=== PATIENT | male | born 1960 | race Caucasian/White ===

== ENCOUNTER → 2021-11-20 | Outpatient (CLI) | payer BC ==
--- NOTE | 2021-11-23 12:03 | PE ---
Nuclear medicine PET/CT HISTORY: Solitary pulmonary nodule, initial, R 91.8 Patient received 11 mCi of F-18 FDG intravenously and delayed scanning was performed from the skull b ase to the mid thighs. A localization and attenuation correction CT scan was also performed. Comparison unavailable Avid mediastinal uptake SUV 2.3, average liver uptake SUV 2.9 Chest and neck: There is no supraclavicular, cervical, mediastinal, axillary or hilar adenopathy. No suspicious uptake. No evident lung mass. Bilateral groundglass nodules are present in the upper lobes , there is a soft tissue nodule in the left upper lobe axial image #94 measuring 14 mm. No suspicious uptake. Bandlike areas of increased attenuation present in the lung bases. Ascending aorta is 4.1 cm . There is no pleural or pericardial effusion. No endobronchial lesion. ABDOMEN: No evident adrenal mass. No retroperitoneal adenopathy or suspicious uptake. Liver shows no mass. There is an umbilical hernia containing fat. There is no suspicious uptake. Osseous structures show no suspicious uptake. IMPRESSION: No suspicious uptake is evident. Follow-up is recommended
== END | disposition home or self-care (01) ==
LOC: RADXRMAIN 07:59
PROVIDERS: ATTEND Pediatrics
DX: R91.8 Other nonspecific abnormal finding of lung field (principal)
CPT/HCPCS: 78815; A9552

== ENCOUNTER → 2022-12-17 | Outpatient (CLI) | payer BC ==
--- NOTE | 2022-12-18 18:01 | PE ---
EXAMINATION TYPE: PET CT fusion skull to thigh DATE OF EXAM: 12/17/2022 COMPARISON: None Prior PET/CT: 11/20/2021 HISTORY: Solitary pulmonary nodule TECHNIQUE: Following the intravenous administration of 13.5 mCi of F-18 FDG, whole body images are p erformed from the skull base to the midthigh. Images are reviewed on the computer in the coronal, ax ial, and sagittal planes. Reconstructed rotating images are created on independent workstation and r eviewed on the computer. A localization and attenuation correction CT is performed in conjunction w ith the PET scan. DLP: 435.21 mGycm SCAN: Subsequent Blood glucose: 88 mg/dL Average Mediastinum SUV: 1.32 Average Liver SUV: 1.85 FINDINGS: NECK: No abnormal uptake THORAX: There is a pulmonary nodule in the lateral left upper lung field. This has an SUV value 0.38 and is likely benign. Image 79. There is a posterior density right apex, image 72 with an SUV of 1.08. There is some vague uptake in the posterior left lung at the same level. This is a groundglass opacity with an SUV of 0.93. ABDOMEN: No abnormal uptake PELVIS: No abnormal uptake OSSEOUS STRUCTURES: No abnormal uptake LOCALIZATION CT: Groundglass opacities posterior upper lung santana bilaterally. Small nodule lateral right upper lung field COMPARISON: Posterior lung groundglass opacities may be slightly increasing in SUV, previously the ra nge of 0.76 on the right and 0.41 on the left. IMPRESSION: 1. Vague increased uptake remains within the normal range of groundglass opacities. Consider developi ng neoplasm. 2. Nodular density in the periphery of the right upper lung field has low SUV value may be benign.
== END | disposition home or self-care (01) ==
LOC: RADPETMAIN 12:57
PROVIDERS: ATTEND Internal Medicine
DX: R91.8 Other nonspecific abnormal finding of lung field (principal); J98.4 Other disorders of lung
CPT/HCPCS: 78815; A9552

== ENCOUNTER 2023-05-25 09:35 | Emergency (ER) | payer BC ==
[2023-05-25 10:22] LABS: Basophils # (A) 0.1 k/uL (0-0.2); Basophils % (A) 0 %; Eosinophils # (A) 0.3 k/uL (0-0.7); Eosinophils % (A) 3 %; HCT 38.9 % (39.0-53.0); HGB 12.9 gm/dL (13.0-17.5); Lymphocytes # (A) 1.3 k/uL (1.0-4.8); Lymphocytes % (A) 12 %; MCHC 33.1 g/dL (31.0-37.0); MCV 93.6 fL (80.0-100.0); Mean Platelet Volume 8.4; Monocytes # (A) 0.6 k/uL (0-1.0); Monocytes % (A) 6 %; Neutrophils # (A) 8.3 k/uL (1.3-7.7); Neutrophils % (A) 77 %; Platelet Count 276 k/uL (150-450); RBC 4.15 m/uL (4.30-5.90); WBC 10.8 k/uL (3.8-10.6)
--- NOTE | 2023-05-25 10:39 | ED ---
GI Bleed HPI - General Source: patient, RN notes reviewed Mode of arrival: ambulatory Limitations: no limitations <Barbara Boswell - Last Filed: 05/25/23 10:38> <Jovany Anaya - Last Filed: 05/25/23 14:13> - General Chief complaint: GI Bleed Stated complaint: blood in stool Time Seen by Provider: 05/25/23 10:38 - History of Present Illness Initial comments: Patient is a 62-year-old male presented to ER with chief complaint of hematochezia. Patient was sent here by Dr. Maciel's office for evaluation. Patient states he had bright red blood in his stool on Tuesday. He also endorses dark tarry stools Tuesday night and Tuesday. Patient stopped taking his Eliquis on Tuesday. Denies any fevers, chills, lightheadedness, dizziness, chest pain, shortness of breath (Barbara Boswell) Dictation was produced using [employer] dictation software. please excuse any grammatical, word or spelling errors. Chief Complaint: 62-year-old male presents to the emergency department with GI bleed History of Present Illness: Patient 62-year-old male 6 days ago he had colonoscopy performed by Dr. Maciel. States that several polyps were removed. 2 to 3 days after the procedure he started to notice bright red blood per rectum. States that the bleeding had improved. He called the GI doctor and he was told to come to the ER for evaluation. Patient has no complaints. No pain. No nausea or vomiting. Denies any dizziness or feeling faint. The ROS documented in this emergency department record has been reviewed and confirmed by me. Those systems with pertinent positive or negative responses have been documented in the HPI. All other systems are other negative and/or noncontributory. (Jovany Anaya) Review of Systems ROS Other: All systems not noted in ROS Statement are negative. <Barbara Boswell - Last Filed: 05/25/23 10:38> ROS Other: All systems not noted in ROS Statement are negative. <Jovany Anaya - Last Filed: 05/25/23 14:13> ROS Statement: Those systems with pertinent positive or pertinent negative responses have been documented in the HPI. General Exam Limitations: no limitations <Barbara Boswell - Last Filed: 05/25/23 10:38> <Jovany Anaya - Last Filed: 05/25/23 14:13> - General Exam Comments Initial Comments: Visual Physical Exam Vital signs reviewed General: Well-appearing, nontoxic, no acute distress. Head: Normocephalic, atraumatic Eyes: PERRLA, EOMI ENT: Airway patent Chest: Nonlabored breathing Skin: No visual rash, normal skin tone Neuro: Alert and oriented 3 Musculoskeletal: No gross abnormalities (Barbara Boswell) General: Well-appearing, nontoxic, no acute distress. Head: Normocephalic, atraumatic Eyes: PERRLA, EOMI ENT: Airway patent Chest: Nonlabored breathing Skin: No visual rash, normal skin tone Neuro: Alert and oriented 3 Musculoskeletal: No gross abnormalities (Jovany Anaya) Course Vital Signs 05/25/23 09:46 Temperature 97.9 F Pulse Rate 88 Respiratory 16 Rate Blood Pressure 162/91 O2 Sat by Pulse 99 Oximetry Medical Decision Making - Lab Data Result diagrams: 05/25/23 09:55 <Barbara Boswell - Last Filed: 05/25/23 10:38> - Lab Data Result diagrams: 05/25/23 09:55 05/25/23 09:55 <Jovany Anaya - Last Filed: 05/25/23 14:13> - Medical Decision Making I performed the quick note portion of the exam. Electronically signed by Barbara Boswell PA-C (Barbara Boswell) Was pt. sent in by a medical professional or institution (MICAELA Carranza, REMOTE ADVISOR, urgent care, hospital, or [facility]...) When possible be specific @ -No Did you speak to anyone other than the patient for history (EMS, parent, family, police, friend...)? What history was obtained from this source @ -No Did you review nursing and triage notes (agree or disagree)? Why? @ -I reviewed and agree with nursing and triage notes Were old charts reviewed (outside hosp., previous admission, EMS record, old EKG, old radiological studies, urgent care reports/EKG's, [facility] records)? Report findings @ -No old charts were reviewed Differential Diagnosis (chest pain, altered mental status, abdominal pain women, abdominal pain men, vaginal bleeding, musculoskeletal, weakness, fever, dyspnea, syncope, headache, dizziness, GI bleed, back pain, seizure, CVA, palpatations, mental health)? @ -Differential GI Bleed: Esophageal varices, aortoenteric fistula, Anastasiya-Benedict, gastritis, peptic ulcer disease, diverticulosis, inflammatory bowel disease, hemorrhoids, fissure, colitis, malignancy, Meckels diverticulum, this is not meant to be an all- inclusive list. EKG interpreted by me (3pts min.). @ -None done X-rays interpreted by me (1pt min.). @ -None done CT interpreted by me (1pt min.). @ -None done U/S interpreted by me (1pt. min.). @ -None done What testing was considered but not performed or refused? (CT, X-rays, U/S, labs)? Why? @ -None What meds were considered but not given or refused? Why? @ -None Did you discuss the management of the patient with other professionals (professionals i.e. , PA, REMOTE ADVISOR, lab, RT, psych nurse, hospice social worker, server support technician, teacher, chief credit officer, field nurse case manager)? Give summary @ -Case discussed including recent bowel habits, vitals, physical exam and blood work with GI, Dr. Galvan who performed the procedure. She states that if he seems well and is agreeable for discharge that can be discharged follow-up in the office outpatient. Was smoking cessation discussed for >3mins.? @ -No Was critical care preformed (if so, how long)? @ -No Were there social determinants of health that impacted care today? How? (Homelessness, low income, unemployed, alcoholism, drug addiction, transportation, low edu. Level, literacy, decrease access to med. care, shelter, rehab)? @ -No Was there de-escalation of care discussed even if they declined (Discuss DNR or withdrawal of care, Hospice)? DNR status @ -No What co-morbidities impacted this encounter? (DM, HTN, Smoking, COPD, CAD, Cancer, CVA, ARF, Chemo, Hep., AIDS, mental health diagnosis, sleep apnea, morbid obesity)? @ -None Was patient admitted / discharged? Hospital course, mention meds given and route, prescriptions, significant lab abnormalities, going to OR and other pertinent info. @ -62-year-old well-appearing male presents to the emergency department with GI bleed after colonoscopy with polypectomy procedure. Vital signs stable. Patient well-appearing at the bedside. Patient has no complaints. Laboratory evaluation is unremarkable. Case discussed with GI specialist who performed the procedure was agreeable for patient to be discharged to follow-up in the clinic outpatient. Patient and strict return precautions. He is agreeable with disposition plan. Undiagnosed new problem with uncertain prognosis? @ -No Drug Therapy requiring intensive monitoring for toxicity (Heparin, Nitro, Insulin, Cardizem)? @ -No Were any procedures done? @ -No Diagnosis/symptom? Acute, or Chronic, or Acute on Chronic? Uncomplicated (without systemic symptoms) or Complicated (systemic symptoms)? @ -GI bleed status post colonoscopy and polypectomy Side effects of treatment? @ -No Exacerbation, Progression, or Severe Exacerbation? @ -No Poses a threat to life or bodily function? How? (Chest pain, USA, IA, pneumonia, PE, COPD, DKA, ARF, appy, cholecystitis, CVA, Diverticulitis, Homicidal, Suicidal, threat to staff... and all critical care pts) @ -No (Jovany Anaya) - Lab Data Lab Results 05/25/23 05/25/23 05/25/23 Range/Units 09:55 09:55 09:55 WBC 10.8 H (3.8-10.6) k/uL RBC 4.15 L (4.30-5.90) m/uL Hgb 12.9 L (13.0-17.5) gm/dL Hct 38.9 L (39.0-53.0) % MCV 93.6 (80.0-100.0) fL MCH 31.0 (25.0-35.0) pg MCHC 33.1 (31.0-37.0) g/dL RDW 14.0 (11.5-15.5) % Plt Count 276 (150-450) k/uL MPV 8.4 Neutrophils % 77 % Lymphocytes % 12 % Monocytes % 6 % Eosinophils % 3 % Basophils % 0 % Neutrophils # 8.3 H (1.3-7.7) k/uL Lymphocytes # 1.3 (1.0-4.8) k/uL Monocytes # 0.6 (0-1.0) k/uL Eosinophils # 0.3 (0-0.7) k/uL Basophils # 0.1 (0-0.2) k/uL Sodium 140 (137-145) mmol/L Potassium 4.6 (3.5-5.1) mmol/L Chloride 107 (98-107) mmol/L Carbon Dioxide 24 (22-30) mmol/L Anion Gap 9 mmol/L BUN 21 H (9-20) mg/dL Creatinine 1.24 (0.66-1.25) mg/dL Est GFR (CKD-EPI)AfAm 72 (>60 ml/min/1.73 sqM) Est GFR (CKD-EPI)NonAf 62 (>60 ml/min/1.73 sqM) Glucose 103 H (74-99) mg/dL Calcium 9.5 (8.4-10.2) mg/dL Total Bilirubin 0.8 (0.2-1.3) mg/dL AST 28 (17-59) U/L ALT 21 (4-49) U/L Alkaline Phosphatase 179 H (38-126) U/L Troponin I <0.012 (0.000-0.034) ng/mL Total Protein 7.9 (6.3-8.2) g/dL Albumin 4.3 (3.5-5.0) g/dL Disposition <Barbara Boswell - Last Filed: 05/25/23 10:38> Is patient prescribed a controlled substance at d/c from ED?: No Time of Disposition: 14:12 <Jovany Anaya - Last Filed: 05/25/23 14:13> Clinical Impression: GI bleed Disposition: HOME SELF-CARE Condition: Fair Instructions (If sedation given, give patient instructions): Gastrointestinal Bleeding (ED) Referrals: Gisel Galvan MD [STAFF PHYSICIAN] - 1-2 days
[2023-05-25 10:43] LABS: ALT 21 U/L (4-49); AST 28 U/L (17-59); African American GFR (CKD) 72 (>60 ml/min/1.73 sqM); Albumin 4.3 g/dL (3.5-5.0); Alkaline Phosphatase 179 U/L (38-126); Anion Gap 9 mmol/L; Blood Urea Nitrogen 21 mg/dL (9-20); Calcium 9.5 mg/dL (8.4-10.2); Carbon Dioxide 24 mmol/L (22-30); Chloride 107 mmol/L (98-107); Glucose 103 mg/dL (74-99); Non-African American GFR(CKD) 62 (>60 ml/min/1.73 sqM); Potassium 4.6 mmol/L (3.5-5.1); Sodium 140 mmol/L (137-145); Total Bilirubin 0.8 mg/dL (0.2-1.3); Total Protein 7.9 g/dL (6.3-8.2)
[2023-05-25 14:50] VITALS: BP 170/82; PULSE 97; RESP 18; TEMP 98.1
== END 2023-05-25 14:41 | disposition home or self-care (01) ==
LOC: EC 09:35
DX: K92.1 Melena (principal)
CPT/HCPCS: 36415; 80053; 84484; 85025; 85730; 93005; 99284

== ENCOUNTER → 2024-01-26 | Outpatient (CLI) | payer BC ==
--- NOTE | 2024-01-29 21:41 | PE ---
EXAMINATION TYPE: PET CT fusion skull to thigh DATE OF EXAM: 01/26/2024 COMPARISON: No recent pertinent CT Prior PET/CT: 12/17/2022 HISTORY: Solitary pulmonary nodule TECHNIQUE: Following the intravenous administration of 11.64 mCi of F-18 FDG, whole body images are performed from the skull base to the midthigh. Images are reviewed on the computer in the coronal, a xial, and sagittal planes. Reconstructed rotating images are created on independent workstation and reviewed on the computer. A localization and attenuation correction CT is performed in conjunction with the PET scan. DLP: 491.45 mGycm SCAN: initial Blood glucose: 100 mg/dL Average Mediastinum SUV: 2.36 Average Liver SUV: 2.9 FINDINGS: NECK: No abnormal uptake THORAX: There is focal uptake within a solitary pulmonary nodule posterior right upper lung field, im age 71, SUV 5.23 findings can be compatible with neoplasm. Previous SUV 1.08. The groundglass opacity within the left upper lung field is again evident, image 71 has intermediate uptake. This is increased from the comparison. Neoplasm is not excluded ABDOMEN: No abnormal uptake PELVIS: No abnormal uptake OSSEOUS STRUCTURES: No abnormal uptake LOCALIZATION CT: PeriUmbilical hernia is noted. COMPARISON: Finding is an interval change from comparison. IMPRESSION: 1. Abnormal uptake within the posterior right lung nodule. Findings suspicious for neoplasm. 2. Intermediate uptake within the groundglass opacity posterior left upper lung field. [facility], Workstation: [facility], 01/29/2024 9:39 PM
== END | disposition home or self-care (01) ==
LOC: RADPETMAIN 13:58
PROVIDERS: ATTEND Internal Medicine
DX: R91.8 Other nonspecific abnormal finding of lung field (principal)
CPT/HCPCS: 78815; A9552

== ENCOUNTER 2024-03-29 09:16 | Day surgery (SDC) | payer BC ==
[2024-03-26 11:06] VITALS: BMI 25.6
[~2024-03-29 09:16] MED LIST: LACTATED RINGERS 1,000 ML IV SCH
--- NOTE | 2024-03-29 10:39 | CT ---
EXAMINATION TYPE: CT chest wo con DATE OF EXAM: 03/29/2024 COMPARISON: PET/CT 01/26/2024 HISTORY: 63-year-old male shortness of breath, Ion bronchoscopy TECHNIQUE: Contiguous axial scanning of the without IV contrast. Images reconstructed for procedure p sharmila. Coronal/sagittal reconstructions performed. CT DLP: 353.50mGycm. Automatic exposure control utilized for a dose reduction. FINDINGS: The heart is mildly enlarged without pericardial effusion. Biatrial dilatation noted. Ascending aorta aneurysmal at 4.1 cm. Conventional vessel branching anatomy. Ectatic upper descending thoracic aorta 3.1 cm. Paratracheal lymph nodes have increased in size currently 1.4 cm lower right paratracheal versus 1.2 cm, previously. 1.0 cm right paratracheal. 1.2 cm right hilar. Borderline caliber main right and left pulmonary arteries up to 2.5 cm may reflect underlying pulmona ry hypertension. Prominent bands of scarring at the lower lungs. Mild emphysematous change. Lobulated solid nodule posterior right upper lobe measuring 1.9 cm versus 1.5 cm, previously. A small 5 mm satellite nodule is better seen now. Posterior lingular nodule measuring 1.3 cm versus 1.0 cm on 01/26/2024 Scattered groundglass foci are present in the upper and midlungs, largest posterior left upper lobe m easuring 2.0 cm, unchanged. These areas can continue to be followed Visualized upper abdomen shows no gross abnormality. Bones: No osseous destructive process. IMPRESSION: 1. Posterior right upper lobe nodule currently 1.9 cm versus 1.5 cm, previously. A 5 mm solid nodule is now better seen. 2. Right hilar and right paratracheal nodes slightly larger now measuring up to 1.4 cm versus 1.2 cm, previously. 3. Posterior lingular nodule currently 1.3 cm versus 1.0 cm, previously. Ongoing careful surveillance follow-up recommended to exclude metachronous neoplasm. 4. Additional stable scattered groundglass foci that represent areas of adenomatous hyperplasia can a lso be followed on an annual basis. 5. Bands of scarring in the lower lungs. Mild cardiomegaly with pulmonary arterial hypertension. [facility], Workstation: 3, 03/29/2024 10:36 AM
[2024-03-29] MEDS: IV FLUID CONTINUATION 1,000 ML IV ONE (12:36)
[2024-03-29] MEDS: LACTATED RINGERS 1,000 ML IV SCH (12:36)
[2024-03-29] MEDS ORDERED: fentaNYL (PF) 50 MCG/ML 2 ML AMP ONE (15:05)
[2024-03-29] MEDS ORDERED: ROCURONIUM 10 MG/ML (5 ML VIAL) IV ONE (15:05)
[2024-03-29] MEDS ORDERED: PROPOFOL 10 MG/ML 20 ML VIAL IV ONE (15:05)
[2024-03-29] MEDS ORDERED: SUCCINYLCHOLINE CHLORIDE 200 MG/10 ML VIAL IV ONE (15:05)
[2024-03-29] MEDS ORDERED: LIDOCAINE 1% INJ 10MG/ML (20 ML MDV) ONE (15:05)
[2024-03-29] MEDS ORDERED: GLYCOPYRROLATE 0.2 MG/ML 2 ML VIAL ONE (15:05)
[2024-03-29] MEDS ORDERED: NEOSTIGMINE 1 MG/ML 10 ML VIAL ONE (15:05)
[2024-03-29] MEDS ORDERED: MIDAZOLAM 2 MG/2 ML VIAL ONE (15:05)
[2024-03-29] MEDS ORDERED: PHENYLEPHRINE-0.9% NACL SYG 1,000 MCG/10 ML SYRINGE ONE (15:05)
[2024-03-29] MEDS: LACTATED RINGERS 1,000 ML IV ONE (16:53)
--- NOTE | 2024-03-29 16:57 | P.PCN ---
Date of Procedure: 03/29/24 Operative Findings: Preoperative Diagnosis: Right upper lobe mass Left upper lobe mass/groundglass opacity Mediastinal lymphadenopathy Postoperative Diagnosis: Right upper lobe mass Left upper lobe mass/groundglass opacity Mediastinal lymphadenopathy Procedure(s) Performed: Flexible bronchoscopy Robotic-assisted bronchoscopy and addition to radial ultrasound evaluation of the right upper lobe mass Robotic-assisted transbronchial transbronchial needle aspirate, transbronchial biopsies, transbronchial brushing and bronchoalveolar lavage of the right upper lobe mass Robotic assisted transbronchial biopsies, transbronchial brushing and a bronchioloalveolar lavage of the left upper lobe mass/groundglass opacity Endobronchial ultrasound Transbronchial needle aspirate of station 4R and 10R lymph nodes Anesthesia: HOLLISA Surgeon: Darius Roberts Estimated Blood Loss (ml): 0 Pathology: other Condition: stable Disposition: same day Operative Findings: A physical exam was performed. Informed consent was obtained from the patient after explaining all the risks (pneumothorax, life threatening bleeding, infection and adverse effects due to medications), benefits and alternatives to the procedure which the patient appeared to understand and so stated. The patient was connected to the monitoring devices. General anesthesia was induced and the patient was intubated by anesthesia. A final timeout was performed and the procedure confirmed by the attending staff bronchoscopist. The bronchoscope was inserted and the airway examined. Airway examination shows that the distal trachea, Right upper lobe and middle lobe and lower lobe bronchi was all within normal limits. Patient left mainstem bronchus is within normal limits. Examination of left lower lobe was within normal limits. The left upper lobe bronchus and the lingular segment was also patent within normal limits. The flexible bronchoscope was removed and the robotic bronchoscope was inserted. Registration was completed. I next guided the robotic bronchoscope using the navigation system into the right upper lobe mass and the navigation was done through the posterior segment of the right upper lobe. Once in proper position, the bronchoscope was frozen. The radial EBUS probe was placed through the bronchoscope and confirmed abnormal u/s images vs normal lung. A needle was placed through the working channel and another fluoroscopic guidance, we sampled the area in the right upper lobe where the opacity was present. We then used a cloud biopsy pattern with ultrasound confirmation for 2 additional passes with the needle. Following that, a forceps were next introduced through working channel and extended the appropriate distance and 2 transbronchial biopsies were performed using fluoroscopic guidance. The u/s probe was then reinserted to confirm location. When confirmed this process was repeated for a total of 8 transbronchial biopsies. Following that, under fluoroscopic guidance, transbronchial brushing of the right upper lobe mass was done. Following that, a total of 40 cc of saline was infused into the right upper lobe and approximately 10 cc of saline was aspirated and the bronchioloalveolar lavage was sent for cytologic evaluation. Following that, the robotic bronchoscope was directed to the apical posterior segment of the left upper lobe. Once in proper position, the bronchoscope was frozen. The radial EBUS probe was placed through the bronchoscope and confirmed abnormal u/s images vs normal lung. A needle was placed through the working channel and another fluoroscopic guidance, we sampled the area in left upper lob e where the opacity was present. A forceps were next introduced through working channel and extended the appropriate distance and 2 transbronchial biopsies were performed using fluoroscopic guidance. The u/s probe was then reinserted to confirm location. When confirmed this process was repeated for a total of 8 transbronchial biopsies. Following that, under fluoroscopic guidance, transbronchial brushing of the left upper lobe opacity/groundglass lesion was done. Following that, a total of 40 cc of saline was infused into the right upper lobe and approximately 10 cc of saline was aspirated and the bronchioloalveolar lavage was sent for cytologic evaluation. Following that, I am bronchoscope was removed. The endobronchial ultrasound was inserted and a full evaluation of the mediastinal lymph nodes was done. Upon careful investigation with endobronchial ultrasound, a 15 x 10 mm right paratracheal lymph (4R) node was identified and another 10 mm station 10R lymph node.. Using a 22-gauge position needle, transbronchial needle aspirate of the station 4R was performed with a total of 3 passes and station 10R lymph node was done with a total of 3 passes. Endobronchial ultrasound was removed. The rest of the midsternal stations showed no significant pathologic mediastinal lymphadenopathy. Flex. bronchoscope was inserted and regular suctioning was done. At the completion of the procedure, no residual secretions or bloody material within the airway. The bronchoscope was removed. The patient was extubated. FINDINGS: 1. The airways appeared normal 2 Successful navigation, ultrasonographic identification, and biopsies of right upper lobe mass and left upper lobe mass 3. The the radial ultrasound view was concentric in the right upper lobe, less concentric and more hazy in the left upper lobe. 4. Endobronchial ultrasound with biopsy of the right paratracheal station 4R and 10R lymph nodes with the primary care RECOMMENDATIONS: Await pathology and cytology results The referring physician will be alerted to the results when available. The patient was advised to follow up with the referring physician with the biopsy results Patient will be called with results.
[2024-03-29 17:07] VITALS: RESP 16; TEMP 97.7
--- NOTE | 2024-03-29 17:41 | XR ---
EXAMINATION TYPE: XR chest 1V DATE OF EXAM: 03/29/2024 5:21 PM COMPARISON: None. CLINICAL INDICATION: Male, 63 years old with history of post bx, TECHNIQUE: XR chest 1V view(s) obtained. FINDINGS: The heart size is prominent. The pulmonary vasculature is normal. Mild infiltrate changes in the left upper lung field. Correlate for atelectasis and pneumonia. Underl timothy mass is not excluded. Some nonspecific increased lung markings are in the left lower lung field. Biopsy was performed bilaterally. No pneumothorax is evident. IMPRESSION: 1. Clinical correlation for atelectasis and pneumonia within the left upper lobe. Underlying mass is not excluded Subsegmental atelectasis is favored and lower lung field. 2. Mild cardiomegaly. 3. No pneumothorax post bilateral lung biopsy. [facility], Workstation: [facility], 03/29/2024 5:39 PM
[2024-03-29 17:58] VITALS: BP 141/70; PULSE 84
--- NOTE | 2024-03-29 23:42 | FL ---
EXAMINATION TYPE: FL bronchoscopy DATE OF EXAM: 03/29/2024 4:42 PM COMPARISON: Pre Operative Images if available both CT/MRI or plain film CLINICAL INDICATION: Male, 63 years old with history of BRONCHOSCOPY WITH ION ROBOT; TECHNIQUE: FL bronchoscopy, multiple fluoroscopic images provided for procedure. Total fluoroscopy time: 5 min 42 seconds Total submitted images to PACS: 2 DAP: 13.296 mGym2 Gycm2 uGym2 cGycm2 or equivalent. FINDINGS: IMPRESSION: 1. No evidence for intraoperative complication. 2. Please see the operative/procedural note for further details. [facility], , 03/29/2024 11:39 PM
== END 2024-03-29 18:19 | disposition home or self-care (01) ==
LOC: ORWHC2ENDO 09:16
PROVIDERS: ATTEND Internal Medicine Critical Care Medicine
DX: C34.11 Malignant neoplasm of upper lobe, right bronchus or lung (principal); I42.9 Cardiomyopathy, unspecified; I48.91 Unspecified atrial fibrillation; I71.20 Thoracic aortic aneurysm, without rupture, unspecified; Z87.891 Personal history of nicotine dependence; Z88.6 Allergy status to analgesic agent; Z79.899 Other long term (current) drug therapy
CPT/HCPCS: 87798 ×3; 87496; 87498; 87529; 88108; 88305; 88342; 87502; 87634; 88341; 87070; 87205; 87116; 87102; 87206; 87635; 71045; 71250; 31628; 31623; 31624; 31652; J2250; J0330; J2710; J2003; J3010; J2704; J2371; J1596; S2900; 31629

== ENCOUNTER → 2024-04-23 | Outpatient (CLI) | payer BC ==
--- NOTE | 2024-04-23 08:56 | MR ---
EXAMINATION TYPE: MR abdomen wo/w con DATE OF EXAM: 04/23/2024 8:44 AM INDICATION: Patient age:Male; 63 years old; Reason for study: N18.9 chronic kidney disease; PHH. History of lung cancer. COMPARISON: PET CT 01/26/2024, 12/17/2022, 11/20/2021 TECHNIQUE: Multiplanar multi-sequence imaging was performed without and with IV contrast. The patien t was given 8 ccs of Gadobutrol intravenously and dynamic imaging was performed. FINDINGS: LOWER CHEST: Bilateral lower lobe atelectatic change. Cardiomegaly. ABDOMEN Liver: Focal region of fatty infiltration adjacent to the falciform ligament. No suspicious enhancing lesion. Noncirrhotic morphology. Gallbladder and Bile ducts: Unremarkable. Pancreas: Unremarkable. Spleen: Unremarkable. Adrenal glands: Unremarkable. Kidneys: No hydronephrosis. Atrophy of the left kidney with cortical thinning. Bilateral perinephric fat stranding. Kidneys enhance symmetrically without suspicious enhancing renal lesion Stomach and Bowel: No evidence for bowel obstruction. Scattered distal colonic diverticula. Peritoneum: No evidence of pneumoperitoneum, free fluid, or adenopathy. Vasculature: Unremarkable. No aortic aneurysm. Abdominal wall: Small fat filled umbilical hernia also containing small amount of fluid. Musculoskeletal: The osseous structures appear intact. IMPRESSION: 1. No concerning abdominal mass identified. 2. Atrophy of the left kidney compared to the right. [facility], , 04/23/2024 8:54 AM
== END | disposition home or self-care (01) ==
LOC: RADMRIMAIN 07:45
PROVIDERS: ATTEND Internal Medicine
DX: C34.90 Malignant neoplasm of unspecified part of unspecified bronchus or lung (principal); N26.1 Atrophy of kidney (terminal); N18.9 Chronic kidney disease, unspecified; I10 Essential (primary) hypertension; I48.91 Unspecified atrial fibrillation
CPT/HCPCS: 74183; A9585

== ENCOUNTER → 2024-10-01 | Outpatient (CLI) | payer BC ==
[2024-10-01 13:05] LABS: Partial Thromboplastin Time 22.3 sec (22.0-30.0); Prothrombin Time 11.2 sec (10.0-12.5)
[2024-10-01 15:04] LABS: Basophils # (A) 0.07 X 10*3/uL (0.00-0.10); Basophils % (A) 0.9 %; Eosinophils # (A) 0.14 X 10*3/uL (0.04-0.35); Eosinophils % (A) 1.8 %; HCT 40.1 % (39.6-50.0); HGB 12.4 g/dL (13.0-17.0); Lymphocytes % (A) 14.1 %; MCH 29.4 pg (27.0-32.0); MCHC 30.9 g/dL (32.0-37.0); Mean Platelet Volume 11.7 FL (9.5-12.2); Monocytes # (A) 0.72 X 10*3/uL (0.20-1.00); Monocytes % (A) 9.2 %; NRBC Per 100 WBC 0 X 10*3/uL (0.00-0.01); Neutrophils # (A) 5.68 X 10*3/uL (1.80-7.70); Platelet Count 215 X 10*3/uL (140-440); RBC 4.22 X 10*6/uL (4.40-5.60); RDW 15.9 % (11.5-14.5); WBC 7.79 X 10*3/uL (4.50-10.00)
[2024-10-01 15:21] LABS: Appearance,Urine Clear (Clear); Bilirubin,Urine Negative (Negative); Blood,Urine Negative (Negative); Color,Urine Yellow (Yellow); Ketones,Urine Negative (Negative); Nitrite,Urine Negative (Negative); PH, Urine 6.5; Specific Gravity,Urine 1.022 (1.001-1.030); Urobilinogen,Urine 0.2 E.U./DL
[2024-10-01 15:25] LABS: Blood Urea Nitrogen 30.4 mg/dL (9.0-27.0); Carbon Dioxide 21.1 mmol/L (21.6-31.8); Chloride 105 mmol/L (96-109); Glucose 86 mg/dL (70-110); Potassium 5.3 mmol/L (3.5-5.5); Sodium 138 mmol/L (135-145)
[2024-10-01 15:39] LABS: Bacteria,Urine None Seen (None Seen)
== END | disposition home or self-care (01) ==
LOC: LABPAT 10:39
PROVIDERS: ATTEND Thoracic Surgery (Cardiothoracic Vascular Surgery)
DX: Z01.812 Encounter for preprocedural laboratory examination (principal); C34.90 Malignant neoplasm of unspecified part of unspecified bronchus or lung
CPT/HCPCS: 36415; 80051; 81001; 82565; 82947; 84520; 85025; 85610; 85730; 86850; 86900; 86901

== ENCOUNTER 2024-10-02 05:50 | Inpatient (IN) | payer BC ==
[2024-10-02] MEDS: LIDOCAINE 1% (10MG/ML) FOR IV START INTRADERMA STA (06:30)
[2024-10-02] MEDS: LACTATED RINGERS 1,000 ML IV SCH (06:40)
[2024-10-02] MEDS: IV FLUID CONTINUATION 1,000 ML IV ONE ×3 (06:40→11:16)
[2024-10-02] MEDS: ONDANSETRON 4 MG/2 ML VIAL IVP ONE (06:48)
[2024-10-02] MEDS: fentaNYL (PF) 50 MCG/ML 2 ML AMP IVP PRN (06:59)
[2024-10-02] MEDS: MIDAZOLAM 2 MG/2 ML VIAL IV PRN (06:59)
[2024-10-02] MEDS ORDERED: PROPOFOL 10 MG/ML 20 ML VIAL IV ONE (07:40)
[2024-10-02] MEDS ORDERED: GLYCOPYRROLATE 0.2 MG/ML 2 ML VIAL ONE (07:40)
[2024-10-02] MEDS ORDERED: ROPIVACAINE 5 MG/ML 30 ML VIAL ONE (07:40)
[2024-10-02] MEDS ORDERED: fentaNYL (PF) 50 MCG/ML 2 ML AMP ONE (07:40)
[2024-10-02] MEDS ORDERED: NEOSTIGMINE 1 MG/ML 10 ML VIAL ONE (07:40)
[2024-10-02] MEDS ORDERED: DEXAMETHASONE SOD PHOSPHATE 4 MG/ML 1 ML VIAL ONE (07:40)
[2024-10-02] MEDS ORDERED: PHENYLEPHRINE 10 MG/ML VIAL ONE (07:40)
[2024-10-02] MEDS ORDERED: LIDOCAINE 4% LTA KIT (4 ML) TOPICAL ONE (07:40)
[2024-10-02] MEDS ORDERED: DEXAMETHASONE SOD PHOSPHATE 10 MG/ML 1 ML VIAL ONE (07:40)
[2024-10-02] MEDS ORDERED: ROCURONIUM 10 MG/ML (5 ML VIAL) IV ONE (07:40)
[2024-10-02] MEDS: ceFAZolin 2 GM in DEXTROSE 5% IN WATER 50 ML IVPB PRN (07:43)
[2024-10-02] MEDS: BUPIVACAINE (PF) 0.5% 30 ML VIAL SQ ONE (08:49)
--- NOTE | 2024-10-02 10:51 | P.ANPRN ---
Procedure Note - Anesthesia - Nerve Block Performed Right Erector Spinae Single Time Out Performed: Yes ([id number]) Date of Procedure: 10/02/24 Procedure Start Time: 07:00 Procedure Stop Time: 07:05 Location of Patient: PreOp Indication: Acute Post-Operative Pain, Requested by Surgeon Specifically requested for management of pain by DrAlisa: Abner Guzman Sedation Type: Sedate with meaningful contact maintained Preparation: Sterile Prep Position: Sitting Catheter: None Needle Types: Pajunk Needle Gauge: 21 Ultrasound used to visualize needle placement: Yes Ultrasound used to observe medication spread: Yes Injectate: 0.5% Ropivacaine (see comment for volume) (30cc+4decadron) Blood Aspirated: No Pain Paresthesia on Injection Noted: No Resistance on Injection: Normal Image Stored and Saved: Yes Events: Uneventful and Well Tolerated
[2024-10-02] MEDS: LACTATED RINGERS 1,000 ML IV ONE (11:15)
--- NOTE | 2024-10-02 11:59 | P.OP ---
Date of Procedure: 10/02/24 Preoperative Diagnosis: Adenocarcinoma right upper lobe of lung Postoperative Diagnosis: Same Procedure(s) Performed: Robotic assisted thoracoscopic right upper lobectomy with mediastinal lymph node dissection Anesthesia: CAROLE Surgeon: Abner Guzman Estimated Blood Loss (ml): 50 Pathology: other (Right upper lobe for frozen and permanent section. Lymph node stations R4, R8, R10, R11, level 7) Condition: stable Disposition: PACU Indications for Procedure: 63-year-old male initially presented to [place] in May of this year for consideration for a right upper lobectomy for documented well-differentiated adenocarcinoma of the right upper lobe. The patient had been followed for some period of time for bilateral GGO's and 1 in the right upper lobe had become semisolid. Biopsy confirmed the presence of well-differentiated adenocarcinoma. Metastatic workup was negative. The patient had extensive lymphadenopathy but no evidence of uptake. Patient was not willing to consent at that time. He underwent evaluation by cardiology with clearance. He [place] presented to [place] a couple of weeks ago at which time we scheduled him for surgery and obtained a new PET scan. This demonstrated again no evidence of metastasis but increase in size of the primary tumor. Operative Findings: Tumor mass in the right upper lobe posteriorly well away from the hilum. No gross involvement of the overlying pleura. Extensive anthracotic lymphadenopathy was present in the hilum and to a lesser extent in the mediastinum. There were marked adhesions anteriorly and inferiorly in the pleural space. Frozen section of the bronchial margin was negative. Description of Procedure: Patient was brought to the operating room and placed supine on the operating table. General anesthesia was induced. He was intubated with a double-lumen 37 mm tube. Tube was positioned with fiberoptic bronchoscopy and secured. The patient was turned in the left lateral decubitus position and appropriately positioned for robotic lobectomy. The right chest was sterilely prepped and draped. Initial incision was made in the eighth interspace in the midaxillary line. 8 mm robotic port was placed and after confirming placement in the pleural space CO2 insufflation was begun. 212 mm robotic ports were placed anterior and posterior to this first port. A second 8 mm port was placed posteriorly at the level of the superior segment of the right lower lobe. Working port was placed at the level of the diaphragm between the 2 most anterior ports. The robot was docked. Fissures were incomplete and were marked. There were extensive adhesions anteriorly to the mediastinal fat and these were taken down with electrocautery being careful to avoid any injury to the phrenic nerve. There were also adhesions of the lower lobe to the diaphragm which were taken down again with the robotic cautery. The inferior pulmonary ligament was then taken down and dissection continued posteriorly. R8 and level 7 lymph nodes were dissected out. Dissection was carried between the upper lobe bronchus and bronchus intermedius and R11 lymph nodes were resected. Posterior segmental arterial branch of the pulmonary artery was dissected out and ligated and divided with a robotic vascular stapler. We we were now able to encircle the right upper lobe bronchus and ligated and divided with a robotic green stapler. Further R11 lymph nodes were then resected. Attention was now directed anteriorly. The superior pulmonary vein to the the apex of the heart was dissected out and ligated and divided. Further branches to the upper lobe were more posterior and very stuck to the pulmonary artery. We therefore moved to the 2 pulmonary artery branches leading to the upper lobe in order to give us freedom to dissected out the remaining pulmonary vein branches. There was a larger branch of the pulmonary artery that was taken with a robotic stapler and then a smaller branch that was taken with a robotic stapler. We were now able to successfully dissected out and ligated and divided the remaining branches of the pulmonary vein draining the upper lobe using a robotic stapler. Most superior branch of the pulmonary artery to the upper lobe was now dissected out and ligated and divided with the robotic stapler. There was some further dissection in the hilum to remove more anthracotic adenopathy and then the fissures were completed with multiple firings of the 45 mm blue robotic stapler. Lobectomy specimen was placed in an Endo Catch bag and retracted inferiorly. We dissected out the R10 and R4 lymph nodes and sent them for permanent section. Robotic ports were now removed and the working port incision enlarged to allow passage of the lobectomy specimen in the Endo Catch bag out to this field. This was examined on the back table and sent for frozen section of the bronchial margin which returned negative. The chest was irrigated with warm water and the lung inflated and no air leaks were noted. Water was suctioned free 28 Sudanese chest tube was placed through separate stab incision anteriorly and positioned posterior apically and secured with an 0 Ethibond suture. The lung was reexpanded and the incisions closed with layers of Vicryl suture. Skin glue and dry sterile dressings were applied. The chest tube was connected to Pleur-evac. The patient was turned supine extubated and transferred to recovery in stable condition.
--- NOTE | 2024-10-02 12:06 | XR ---
EXAMINATION TYPE: XR chest 1V portable DATE OF EXAM: 10/02/2024 11:51 AM COMPARISON: 03/29/2024 CLINICAL INDICATION: Male, 63 years old with history of Postop right upper lobectomy, TECHNIQUE: XR chest 1V portable view(s) obtained. FINDINGS: The heart size is enlarged. The pulmonary vasculature is somewhat prominent. No suspicious focal consolidation is evident. No pneumothorax evident. Right-sided chest tube present. Subcutaneous emphysema along the lateral chest IMPRESSION: 1. No pneumothorax is evident. Right-sided chest tube remains present. 2. Cardiomegaly [facility], , 10/02/2024 12:04 PM
[2024-10-02] MEDS: HYDROmorphone 0.5 MG/0.5 ML SYRINGE IVP PRN (13:31)
[2024-10-02] MEDS: ALBUTEROL NEBULIZED 2.5 MG/3 ML INHALATION STA (13:54)
[2024-10-02] MEDS ORDERED: IPRATROPIUM-ALBUTEROL 3 ML NEB IH PRN (15:17)
[2024-10-02] MEDS ORDERED: METOCLOPRAMIDE 5 MG/ML 2 ML VIAL IVP PRN (15:17)
[2024-10-02] MEDS ORDERED: ONDANSETRON 4 MG/2 ML VIAL IVP PRN (15:17)
[2024-10-02] MEDS ORDERED: bisacodyL 10 MG SUPP RECTAL PRN (15:17)
[2024-10-02] MEDS: IPRATROPIUM-ALBUTEROL 3 ML NEB IH SCH (15:39)
[2024-10-02] MEDS: ACETAMINOPHEN IV (For NPO) 1,000 MG in EMPTY BAG 1 BAG IVPB SCH (16:07)
[2024-10-02] MEDS: KETOROLAC 15 MG/ML 1 ML VIAL IVP SCH (16:16)
[2024-10-02] MEDS: HEPARIN SODIUM,PORCINE 5,000 UNIT/ML 1 ML VIAL SQ SCH (16:17)
[2024-10-02] MEDS: DEXTROSE 5%-0.45% NACL 1,000 ML IV SCH (16:18)
[2024-10-02] MEDS: ceFAZolin 2 GM in DEXTROSE 5% IN WATER 50 ML IVPB SCH (16:41)
[2024-10-02] MEDS: FORMOTEROL FUMARATE 20 MCG/2 ML NEBU INHALATION SCH (18:35)
[2024-10-02] MEDS: GABAPENTIN 300 MG CAP PO SCH (20:36)
[2024-10-02] MEDS: METOPROLOL TARTRATE 50 MG TAB PO SCH (20:36)
[2024-10-02] MEDS: lisinopriL 20 MG TAB PO SCH (20:36)
[2024-10-02] MEDS: traMADol 50 MG TAB PO PRN (20:36)
--- NOTE | 2024-10-03 02:03 | P.CNPUL ---
History of Present Illness Consult date: 10/03/24 Requesting physician: Olvin Jordan Reason for consult: other (Status post robotic thorascopic right upper lobectomy) History of present illness: Patient is a 63-year-old male with past medical history significant for lung cancer, COPD, former tobacco dependence, hypertension, atrial fibrillation, chronic kidney disease, gout. He does follow in the pulmonary office with Dr. De La Garza. Patient has been following up outpatient for a 1.9 cm right upper lobe lung nodule. Also, right hilar and right paratracheal lymph node enlargement. PET scan from January, demonstrating abnormal uptake within the posterior right upper lung nodule with an SUV value of 5.23, suspicious for neoplasm. Additional left upper lobe groundglass opacities were noted. On 03/29/2024 did undergo robotic assisted transbronchial biopsy of the right upper lobe mass and EBUS of stations 4R and 10R lymph nodes. Pathology of the right upper lobe nodule was positive for well-differentiated adenocarcinoma with enteric and mucinous features, favoring metastasis from upper gastrointestinal versus pancreatic-biliary tract primary. GI workup was reportedly unremarkable. MRI of the abdomen did not show any concerning abdominal masses. Patient was referred to cardiothoracic surgery. Patient is known to have moderate COPD. Recent PFT demonstrates FEV1 1.79 L or 55% of predicted. Uncorrected, diffusion capacity for carbon monoxide 50% of predicted. Did undergo robotic assisted thorascopic right upper lobectomy with mediastinal lymph node dissection yesterday. Extubated in the PACU, and admitted to the cardiac stepdown unit for recovery. Postoperative chest x-ray did not show any obvious evident pneumothorax on the right. There was a right-sided chest tube in appropriate positioning. Some minimal subcutaneous emphysema tracking the lateral chest. Patient currently being evaluated on the cardiac stepdown unit. He is on room air. He does have a right-sided chest tube which is to waterseal. Does have intermittent air leaking. Approximately 300 cc of serosanguineous output in discharge chamber. Equal breath sounds. Denies any shortness of breath. Does endorse some right-sided chest pain with coughing and deep breathing, rated 10/10 on a 10 point numerical scale. Currently, being managed with a combination of Toradol, Ultram, and as needed Tylenol. His incentive spirometer is at bedside.. Review of Systems Constitutional: Denies chills, Denies fatigue, Denies fever, Denies poor appetite, Denies sweats, Denies weight gain, Denies weight loss Ears, nose, mouth and throat: Denies dysphagia, Denies headache, Denies nasal congestion, Denies nasal discharge, Denies post-nasal drip, Denies sinus pain, Denies sinus pressure, Denies sore throat, Denies voice changes Cardiovascular: Denies chest pain, Denies leg edema, Denies lightheadedness, Denies orthopnea, Denies palpitations, Denies paroxysmal nocturnal dyspnea, Denies shortness of breath, Denies syncope Respiratory: Reports pain on inspiration, Denies congestion, Denies cough, Denies dyspnea, Denies excessive sputum, Denies home oxygen, Denies wheezing Gastrointestinal: Denies abdominal pain, Denies diarrhea, Denies nausea, Denies vomiting Genitourinary: Denies dysuria Musculoskeletal: Denies limitation of motion Integumentary: Denies rash Neurological: Denies seizures, Denies syncope Psychiatric: Denies anxiety, Denies depression Past Medical History Past Medical History: Atrial Fibrillation, Cancer, GERD/Reflux, GI Bleed, Hypertension Additional Past Medical History / Comment(s): new dx. lung cancer, abd. hernia currently, had some bleeding after some colon polyps removed, Osteoporosis. History of Any Multi-Drug Resistant Organisms: None Reported Past Surgical History: Cardiac Ablation Additional Past Surgical History / Comment(s): Colonoscopy, bronchoscopy Past Anesthesia/Blood Transfusion Reactions: Previous Problems w/ Anesthesia Additional Past Anesthesia/Blood Transfusion Reaction / Comment(s): No hx of blood transfusion to date., couldn't urinate after bronchoscopy in Mar. Smoking Status: Former smoker - Past Family History Father Family Medical History: No Reported History Medications and Allergies Home Medications Medication Instructions Recorded Confirmed Type Apixaban [Eliquis] 5 mg PO BID 03/26/24 09/27/24 History Furosemide [Lasix] 20 mg PO Q2D 03/26/24 09/27/24 History Gabapentin [Neurontin] 300 mg PO BID 03/26/24 09/27/24 History Metoprolol Tartrate [Lopressor] 100 mg PO BID 03/26/24 09/27/24 History Omeprazole [PriLOSEC] 20 mg PO AC-BRKFST 03/26/24 09/27/24 History Potassium Chloride ER [K-Dur 10] 10 meq PO Q2D 03/26/24 09/27/24 History Probenecid [Benemid] 250 mg PO BID 03/26/24 09/27/24 History allopurinoL [Zyloprim] 300 mg PO QAM 03/26/24 09/27/24 History lisinopriL [Prinivil] 20 mg PO HS 03/26/24 09/27/24 History Sildenafil Citrate [Viagra] 50 mg PO DIRECTED PRN 09/28/24 09/28/24 History Allergies Allergy/AdvReac Type Severity Reaction Status Date / Time menthol [From [employer]] AdvReac Swelling Verified 10/02/24 06:08 to hands methyl salicylate AdvReac Swelling Verified 10/02/24 06:08 [From [employer]] to hands Physical Exam Vitals: Vital Signs Temp Pulse Pulse Resp BP BP BP 10/02/24 23:13 85 18 130/72 10/02/24 20:20 97.8 F 91 18 151/56 10/02/24 18:53 83 10/02/24 18:48 82 10/02/24 18:47 82 10/02/24 18:36 83 10/02/24 15:55 88 10/02/24 15:40 90 10/02/24 15:02 82 12 120/73 10/02/24 14:32 81 18 109/70 10/02/24 14:02 84 13 123/74 10/02/24 13:32 86 16 123/73 10/02/24 13:02 82 16 118/74 10/02/24 12:32 81 12 145/58 149/67 10/02/24 12:17 75 14 150/67 164/95 10/02/24 12:02 78 16 144/62 10/02/24 11:47 82 15 133/69 10/02/24 11:32 83 18 148/67 10/02/24 11:16 96.8 F L 71 18 142/60 133/85 10/02/24 07:35 82 16 151/73 10/02/24 07:20 73 16 145/84 10/02/24 07:15 86 16 118/78 10/02/24 07:10 80 16 121/64 10/02/24 07:05 70 16 134/74 10/02/24 06:30 97.7 F 95 16 134/84 Pulse Ox 10/02/24 23:13 90 L 10/02/24 20:20 92 L 10/02/24 18:53 10/02/24 18:48 10/02/24 18:47 10/02/24 18:36 10/02/24 15:55 10/02/24 15:40 94 L 10/02/24 15:02 93 L 10/02/24 14:32 96 10/02/24 14:02 96 10/02/24 13:32 98 10/02/24 13:02 97 10/02/24 12:32 90 L 10/02/24 12:17 92 L 10/02/24 12:02 98 10/02/24 11:47 97 10/02/24 11:32 100 10/02/24 11:16 98 10/02/24 07:35 99 10/02/24 07:20 99 10/02/24 07:15 99 10/02/24 07:10 98 10/02/24 07:05 96 10/02/24 06:30 98 Intake and Output 10/02/24 10/02/24 10/03/24 14:59 22:59 06:59 Intake Total 1600 600 Output Total 200 335 0 Balance 1400 265 0 Intake: IV 1600 Oral 600 Output: Chest Tube Drainage 90 0 Right 90 0 Urine 245 Uretheral (Casas) 45 Estimated Blood Loss 200 Other: Voiding Method Indwelling Catheter GENERAL EXAM: Alert, 63-year-old male, on room air, fairly comfortable in no apparent distress. Incentive spirometer is at bedside. HEAD: Normocephalic and atraumatic EYES: Normal reaction of pupils, equal size. NOSE: Clear with pink turbinates. THROAT: No erythema or exudates. NECK: No masses, no JVD. Trachea midline. CHEST: Right thoracotomy tube attached to suction and atrium with waterseal. 30 0 cc of serosanguineous fluid in the drainage chamber. Intermittent air leaking. No palpable subcutaneous emphysema. LUNGS: Equal air entry with no crackles, wheeze, rhonchi or dullness. On room air. No conversational dyspnea or accessory muscle use.. CVS: S1 and S2 normal with no audible murmur, regular rhythm. No extra heart sounds ABDOMEN: No hepatosplenomegaly, active bowel sounds, no guarding or rigidity. SPINE: No scoliosis or deformity SKIN: No rashes CENTRAL NERVOUS SYSTEM: No focal deficits, tone is normal in all 4 extremities. EXTREMITIES: There is no peripheral edema, clubbing, or cyanosis. Peripheral pulses are intact. Results - Diagnostic Findings Chest x-ray: image reviewed Assessment and Plan Assessment: Status postoperative day #1 following robotic assisted thorascopic right upper lobectomy with mediastinal lymph node dissection. No perioperative complicat ions reported. Pathology pending. Biopsy-proven right upper lobe adenocarcinoma, pathology of the right upper lobe nodule positive for well-differentiated adenocarcinoma with enteric and mucinous features, favoring metastasis from upper gastrointestinal versus pancreatic- biliary tract primary. GI workup was reportedly unremarkable. Moderate chronic obstructive pulmonary disease, stable Former tobacco dependence Hypertension Chronic atrial fibrillation Chronic kidney disease stage II History of gout Plan: Patient currently resting comfortably on room air Right thoracotomy tube to -20 cm H2O suction Continues to have intermittent air leaking Encourage incentive spirometer 10 times hourly while awake for COPD Postoperative pain management adequate at this time with a combination of Ultram, Toradol and Tylenol as needed Resume inhalers for COPD As needed DuoNebs resume Eliquis once okayed by surgeon Mechanical DVT prophylaxis with SCDs We will continue to follow I have personally seen and examined the patient, performed the documentation and the assessment and plan as written. Number of minutes spent on the visit:20 Time with Patient: Greater than 30
[2024-10-03] MEDS: SODIUM CHLORIDE 0.9% 500 ML 500 ML IV ONE ×2 (03:24→10:57)
[2024-10-03] MEDS: SCOPOLAMINE 1 MG/72 HR PATCH TRANSDERM ONE (04:26)
[2024-10-03] MEDS: DEXAMETHASONE SOD PHOSPHATE 4 MG/ML 1 ML VIAL IV ONE (04:26)
[2024-10-03] MEDS: PANTOPRAZOLE 40 MG TABLET PO SCH (06:07)
--- NOTE | 2024-10-03 07:15 | XR ---
EXAMINATION TYPE: XR chest 1V DATE OF EXAM: 10/03/2024 7:00 AM COMPARISON: None. CLINICAL INDICATION: Male, 63 years old with history of Postop right upper lobectomy, recent pneumoth orax TECHNIQUE: XR chest 1V view(s) obtained. FINDINGS: The heart size is normal. The pulmonary vasculature is normal. The lungs are clear. No pneumothorax is evident. Right-sided chest tube remains in position. Increasing subcutaneous emphy sema over lateral right chest with some present. IMPRESSION: 1. Cardiomegaly. 2. Right-sided chest tube. No pneumothorax evident. [facility], , 10/03/2024 7:13 AM
[2024-10-03 07:21] LABS: Basophils # (A) 0.02 10*3/uL (0.00-0.10); Basophils % (A) 0.1 %; HCT 34.4 % (39.6-50.0); Lymphocytes # (A) 0.65 10*3/uL (0.90-5.00); Lymphocytes % (A) 3.8 %; MCH 30.2 pg (27.0-32.0); MCV 94.5 fL (80.0-97.0); Mean Platelet Volume 11.9 fL (9.5-12.2); Monocytes # (A) 1.51 10*3/uL (0.20-1.00); Monocytes % (A) 8.9 %; Neutrophils # (A) 14.71 10*3/uL (1.80-7.70); Neutrophils % (A) 86.7 %; Platelet Count 186 10*3/uL (140-440); RBC 3.64 10*6/uL (4.40-5.60); RDW 15.6 % (11.5-14.5); WBC 16.97 10*3/uL (4.50-10.00)
[2024-10-03 07:45] LABS: African American GFR (CKD) 33 (>60 ml/min/1.73 sqM); Anion Gap 10 mmol/L; Blood Urea Nitrogen 44 mg/dL (9-20); Calcium 8.6 mg/dL (8.4-10.2); Carbon Dioxide 22 mmol/L (22-30); Chloride 102 mmol/L (98-107); Glucose 140 mg/dL (74-99); Non-African American GFR(CKD) 28 (>60 ml/min/1.73 sqM); Potassium 4.9 mmol/L (3.5-5.1); Sodium 134 mmol/L (137-145)
[2024-10-03] MEDS: allopurinoL 300 MG TAB PO SCH (07:57)
[2024-10-03] MEDS: BUDESONIDE 0.5 MG/2 ML NEBU INHALATION SCH (08:14)
[2024-10-03] MEDS: DEXTROSE 5%-0.45% NACL 1,000 ML IV SCH (09:06)
--- NOTE | 2024-10-03 11:39 | P.PN ---
Subjective Progress Note Date: 10/03/24 Principal diagnosis: Adenocarcinoma right upper lobe of lung. History of previous tobacco dependence with cessation in 2010, moderate COPD, hypertension, atrial fibrillation on El iquis for anticoagulation status post cardiac ablation, GI bleed POD #1 robotic assisted thoracoscopic right upper lobectomy with mediastinal lymph node dissection The patient was seen and examined this morning sitting up in recliner on the cardiac stepdown unit in no acute distress. States pain is mostly controlled on current medication regimen, denies shortness of breath. Currently in controlled atrial fibrillation, hemodynamically stable. Remains on room air with oxygen saturation in the mid 90s, able to achieve 1000 mL on incentive spirometry. Right pleural chest tube present, was supposed to be to waterseal although was placed to suction last night by pulmonary, placed back to waterseal this morning as per Dr. Guzman's orders. No airleak present today. Patient has had difficul ty with voiding, bladder scan revealed minimal residual urine. Patient has been given 1 bolus of IV fluids, ordered for second bolus, urinalysis ordered. Chest x-ray, labs reviewed, creatinine elevated, nephrology consulted, did discuss the case with Dr. Stiles. Objective - Vital Signs Vital signs: Vital Signs Temp 97.3 F L 10/03/24 08:00 Pulse 82 10/03/24 08:35 Resp 20 10/03/24 08:00 BP 148/73 10/03/24 08:00 Pulse Ox 96 10/03/24 08:15 FiO2 Intake & Output 10/02/24 10/03/24 10/03/24 18:59 06:59 18:59 Intake Total 2200 540 Output Total 400 285 50 Balance 1800 -285 490 Weight 81.6 kg Intake: IV 1600 Oral 600 540 Output: Chest Tube Drainage 240 50 Right 240 50 Urine 200 45 Uretheral (Casas) 45 Estimated Blood Loss 200 Other: Voiding Method Urinal Urinal # Voids 0 - Exam CONSTITUTIONAL: Appears mostly comfortable, cooperative, no acute distress RESPIRATORY: Lungs sounds diminished bilaterally. Respirations even, nonlabored. Currently on room air with oxygen saturation 94%. Able to achieve 1000 mL on incentive spirometry. Strong cough. CARDIOVASCULAR: S1, S2 present. Irregular rate and rhythm, controlled atrial fibrillation on telemetry. Palpable peripheral pulses bilaterally. No edema present. No calf pain or tenderness noted. SCDs present. GASTROINTESTINAL: Abdomen soft, nontender, nondistended. Active bowel sounds present 4 quadrants. Tolerating minimal diet. Positive flatus GENITOURINARY: No void since surgery, bladder scan revealed minimal urine INTEGUMENTARY: Skin is warm and dry with evidence of good perfusion. Thoracic incision well approximated and covered with dry intact dressing. NEUROLOGIC: Cranial nerves II through XII intact MUSKULOSKELETAL: Able to move all extremities, strength equal bilaterally, gait normal PSYCHIATRIC: Alert and oriented to person place and time, appropriate affect, intact judgment and insight INVASIVE LINES AND TUBES: Right pleural chest tubes present and in place to waterseal, no air leaks present, 150 mL serosanguineous drainage overnight, 500 mL since surgery - Allied health notes Allied health notes reviewed: nursing - Labs CBC & Chem 7: 10/03/24 06:21 10/03/24 06:21 Labs: Abnormal Lab Results - Last 24 Hours (Table) 10/03/24 10/03/24 Range/Units 06:21 06:21 WBC 16.97 H (4.50-10.00) 10*3/uL RBC 3.64 L (4.40-5.60) 10*6/uL Hgb 11.0 L (13.0-17.0) g/dL Hct 34.4 L (39.6-50.0) % Immature Gran # 0.08 H (0.00-0.04) 10*3/uL Neutrophils # 14.71 H (1.80-7.70) 10*3/uL Lymphocytes # 0.65 L (0.90-5.00) 10*3/uL Monocytes # 1.51 H (0.20-1.00) 10*3/uL Eosinophils # 0.00 L (0.04-0.35) 10*3/uL Sodium 134 L (137-145) mmol/L BUN 44 H (9-20) mg/dL Creatinine 2.36 H (0.66-1.25) mg/dL Glucose 140 H (74-99) mg/dL - Imaging and Cardiology Chest x-ray: report reviewed, image reviewed Assessment and Plan Assessment: Adenocarcinoma right upper lobe of lung, status post robotic assisted thoracoscopic right upper lobectomy with mediastinal lymph node dissection Acute kidney injury History of previous tobacco dependence with cessation in 2009 Moderate COPD, FEV1 55% of predicted, DLCO 50% of predicted Hypertension Persistent atrial fibrillation on Eliquis for anticoagulation status post cardiac ablation GI bleed Plan: Continue chest tube to waterseal, likely will discontinue tomorrow Encourage incentive spirometry use 10 times every hour while awake, bronchodilators per pulmonology Increase activity as tolerated Second fluid bolus ordered, urinalysis ordered Nephrology consulted Will monitor daily labs and x-rays More recommendations to follow
[2024-10-03 12:23] LABS: Appearance,Urine Cloudy (Clear); Bilirubin,Urine Negative (Negative); Blood,Urine Large (Negative); Color,Urine Yellow; Glucose,Urine (UA) Negative (Negative); Ketones,Urine Trace (Negative); Leukocyte Esterase,Urine Large (Negative); Mucus,Urine Rare /hpf; Nitrite,Urine Negative (Negative); PH, Urine 5.5 (5.0-8.0); Protein,Urine 1+ (Negative); RBC,Urine 146 /hpf (0-5); Specific Gravity,Urine 1.021 (1.001-1.035); Squamous Epithelial Cell,Urine <1 /hpf (0-4); Urobilinogen,Urine <2.0 mg/dL (<2.0); WBC,Urine 81 /hpf (0-5)
--- NOTE | 2024-10-03 12:29 | P.NPCON ---
History of Present Illness - Reason for Consult acute renal failure - History of Present Illness Patient is a 63-year-old male with history of COPD chronic A-fib and lung cancer status post robotic assisted thoracoscopic right upper lobectomy on 10/02/2024. No prior history of kidney disease. Patient was noted to have low urine output yesterday and bladder scan only showed 17 mL of urine. Patient received a fluid bolus with no improvement in urine output. Maintained on BIGG inhibitors No significant hypotension noted with systolic blood pressure of 109 and 118 noted yesterday Patient is maintained on Toradol and lisinopril Serum creatinine was 1.5 on 10/01/2024 and noted to be 2.36 today. No urinary symptoms Past Medical History Past Medical History: Atrial Fibrillation, Cancer, GERD/Reflux, GI Bleed, Hypertension Additional Past Medical History / Comment(s): new dx. lung cancer, abd. hernia currently, had some bleeding after some colon polyps removed, Osteoporosis. History of Any Multi-Drug Resistant Organisms: None Reported Past Surgical History: Cardiac Ablation Additional Past Surgical History / Comment(s): Colonoscopy, bronchoscopy Past Anesthesia/Blood Transfusion Reactions: Previous Problems w/ Anesthesia Additional Past Anesthesia/Blood Transfusion Reaction / Comment(s): No hx of blood transfusion to date., couldn't urinate after bronchoscopy in Dec. Smoking Status: Former smoker - Past Family History Father Family Medical History: No Reported History Medications and Allergies Home Medications Medication Instructions Recorded Confirmed Type Apixaban [Eliquis] 5 mg PO BID 03/26/24 09/27/24 History Furosemide [Lasix] 20 mg PO Q2D 03/26/24 09/27/24 History Gabapentin [Neurontin] 300 mg PO BID 03/26/24 09/27/24 History Metoprolol Tartrate [Lopressor] 100 mg PO BID 03/26/24 09/27/24 History Omeprazole [PriLOSEC] 20 mg PO AC-BRKFST 03/26/24 09/27/24 History Potassium Chloride ER [K-Dur 10] 10 meq PO Q2D 03/26/24 09/27/24 History Probenecid [Benemid] 250 mg PO BID 03/26/24 09/27/24 History allopurinoL [Zyloprim] 300 mg PO QAM 03/26/24 09/27/24 History lisinopriL [Prinivil] 20 mg PO HS 03/26/24 09/27/24 History Sildenafil Citrate [Viagra] 50 mg PO DIRECTED PRN 09/28/24 09/28/24 History Allergies Allergy/AdvReac Type Severity Reaction Status Date / Time menthol [From IcInternetVista Hot] AdvReac Swelling Verified 10/02/24 06:08 to hands methyl salicylate AdvReac Swelling Verified 10/02/24 06:08 [From Arynga Hot] to hands Physical Exam Vitals: Vital Signs Temp Pulse Pulse Resp BP BP Pulse Ox 10/03/24 12:10 78 10/03/24 12:02 80 10/03/24 12:00 86 17 151/93 99 10/03/24 08:35 82 10/03/24 08:25 80 10/03/24 08:15 80 96 10/03/24 08:00 97.3 F L 77 20 148/73 97 10/03/24 03:29 97.6 F 78 18 143/66 94 L 10/02/24 23:13 85 18 130/72 90 L 10/02/24 20:20 97.8 F 91 18 151/56 92 L 10/02/24 18:53 83 10/02/24 18:48 82 10/02/24 18:47 82 10/02/24 18:36 83 10/02/24 15:55 88 10/02/24 15:40 90 94 L 10/02/24 15:02 82 12 120/73 93 L 10/02/24 14:32 81 18 109/70 96 10/02/24 14:02 84 13 123/74 96 10/02/24 13:32 86 16 123/73 98 10/02/24 13:02 82 16 118/74 97 10/02/24 12:32 81 12 145/58 149/67 90 L Intake and Output 10/02/24 10/03/24 10/03/24 22:59 06:59 14:59 Intake Total 600 1080 Output Total 335 150 215 Balance 265 -150 865 Intake: Oral 600 1080 Output: Chest Tube Drainage 90 150 90 Right 90 150 90 Urine 245 125 Uretheral (Casas) 45 Other: Voiding Method Indwelling Catheter Urinal Urinal # Voids 0 1 Weight 81.6 kg Patient is awake, comfortable, no acute distress Examination of the heart S1 and S2 Examination of the lungs bilateral breath sounds are heard, right chest tube noted Abdomen is soft nontender Examination of lower extremities shows no significant edema [employer] exam grossly intact Results - Lab Results Most recent lab results Calcium 8.6 mg/dL (8.4-10.2) 10/03/24 06:21 10/03/24 06:21 10/03/24 06:21 Assessment and Plan Assessment: 1. Acute kidney injury, ATN, oliguric secondary to NSAIDs in the setting of use of BIGG inhibitors along with borderline blood pressure yesterday. Blood pressure is currently on the higher side. No urine retention. Check UA check ultrasound of the kidneys 2. Status post right upper lobectomy on 10/02/2024 for right lung cancer 3. Hypertension with possible underlying CKD as serum creatinine was 1.5 on 10/01/2024, likely etiology is nephrosclerosis 4. Gastroesophageal reflux disease maintained on Prilosec Plan: DC Toradol DC lisinopril Continue with IV fluids Check UA and ultrasound of the kidneys Repeat labs in a.m. Avoid any nephrotoxic agents May continue with Prilosec for now Thank you for the consultation. Will continue to follow the patient with you during his hospitalization.
[2024-10-03] MEDS: SODIUM CHLORIDE 0.9% 1,000 ML IV SCH (13:11)
--- NOTE | 2024-10-03 13:37 | US ---
EXAMINATION TYPE: US kidneys/renal and bladder DATE OF EXAM: 10/03/2024 COMPARISON: MRI(04/23/2024) CLINICAL INDICATION: Male, 63 years old with history of KATHY; TECHNIQUE: Grayscale imaging of the bilateral kidneys and urinary bladder: FINDINGS: EXAM MEASUREMENTS: Right Kidney: 8.5x4.7x4.6 cm Left Kidney: 9.7x5.1x4.6 cm Very limited visualization due to severe overing gas/bowel & pt body habitus Right Kidney: very limited visualization, ?possible hydro Left Kidney: ?hydro seen Bladder: wnl Bilateral Jets seen: yes IMPRESSION: 1. There may be some mild bilateral hydronephrosis. No other suspicious acute ultrasound abnormality bilateral kidneys. Examination is limited however due to the patient body habitus. [facility], , 10/03/2024 1:35 PM
[2024-10-03] MEDS: ACETAMINOPHEN TAB 325 MG TAB PO PRN (19:45)
[2024-10-04] MEDS: MORPHINE SULFATE 2 MG/ML SYRINGE IVP STA (02:43)
[2024-10-04 07:00] LABS: HCT 35.8 % (39.6-50.0); HGB 11.4 g/dL (13.0-17.0); MCH 29.9 pg (27.0-32.0); MCHC 31.8 g/dL (32.0-37.0); Mean Platelet Volume 11.3 fL (9.5-12.2); Platelet Count 184 10*3/uL (140-440); RBC 3.81 10*6/uL (4.40-5.60); RDW 15.9 % (11.5-14.5); WBC 14.81 10*3/uL (4.50-10.00)
--- NOTE | 2024-10-04 07:05 | XR ---
EXAMINATION TYPE: XR chest 2V DATE OF EXAM: 10/04/2024 6:53 AM COMPARISON: None. CLINICAL INDICATION: Male, 63 years old with history of post lobectomy, TECHNIQUE: XR chest 2V view(s) obtained. FINDINGS: The heart size is enlarged. The pulmonary vasculature is normal. There is a right apical pneumothorax. Right-sided chest tube is present. IMPRESSION: 1. Increasing size of a small right apical pneumothorax. 2. Cardiomegaly [facility], , 10/04/2024 7:03 AM
[2024-10-04 07:21] LABS: African American GFR (CKD) 58 (>60 ml/min/1.73 sqM); Anion Gap 11 mmol/L; Blood Urea Nitrogen 38 mg/dL (9-20); Calcium 9.3 mg/dL (8.4-10.2); Carbon Dioxide 21 mmol/L (22-30); Chloride 102 mmol/L (98-107); Glucose 84 mg/dL (74-99); Non-African American GFR(CKD) 50 (>60 ml/min/1.73 sqM); Sodium 134 mmol/L (137-145)
[2024-10-04] MEDS: amLODIPine 5 MG TAB PO SCH (09:20)
--- NOTE | 2024-10-04 11:28 | P.PN ---
Subjective Progress Note Date: 10/04/24 Principal diagnosis: Adenocarcinoma right upper lobe of lung. History of previous tobacco dependence with cessation in 2010, moderate COPD, hypertension, atrial fibrillation on El iquis for anticoagulation status post cardiac ablation, GI bleed POD #1 robotic assisted thoracoscopic right upper lobectomy with mediastinal lymph node dissection. The patient was seen and examined in follow-up today October 04, 2024 at his bedside in the intensive care unit. He is currently sitting up to the bedside chair, is awake, alert, oriented x 3 and is in no acute apparent distress. He de nies any complaints of pain at this time, although reports some episodes of shortness of breath with activity. Oxygen saturations 94% on room air and he achieving 1000 ml on his incentive spiromerty with encouragement. Remote telemetry showing atrial fibrillation heart rate 80 bpm. Surgical pathology results remains pending. He has been up ambulating in the hallway with standby assistance from nursing staff. right pleural chest tube remains on place on waterseal. No air leak present. Draining thin serosanguineous drainage with 130 ml output in the last 8 hrs and 230 ml output in the last 24 hrs. The patient's kidney function showed a BUN 44 and creatinine of 2.36 yesterday, nephrology was consulted. And today his BUN is 38 and creatinine is 1.48. Chest X-ray and lab results reviewed. Objective - Vital Signs Vital signs: Vital Signs Temp 97.7 F 10/04/24 08:00 Pulse 83 10/04/24 10:56 Resp 17 10/04/24 08:00 BP 143/79 10/04/24 08:00 Pulse Ox 100 10/04/24 08:00 FiO2 Intake & Output 10/03/24 10/04/24 10/04/24 18:59 06:59 18:59 Intake Total 2340 240 Output Total 1395 1745 30 Balance 945 -1745 210 Weight 83.8 kg Intake: Oral 2340 240 Output: Chest Tube Drainage 170 170 30 Right 170 170 30 Urine 1225 1575 Other: Voiding Method Urinal Urinal Urinal # Voids 1 1 - Exam CONSTITUTIONAL: Appears mostly comfortable, cooperative, no acute distress RESPIRATORY: Lungs sounds diminished bilaterally, right greater than left. Respirations symmetrical, nonlabored. Currently on room air with oxygen saturation 94%. Able to achieve 1250 mL on incentive spirometry. Strong cough. CARDIOVASCULAR: S1, S2 present. Irregular rate and rhythm, controlled atrial fibrillation on telemetry. Palpable peripheral pulses bilaterally. No edema present. No calf pain or tenderness noted. SCDs present. GASTROINTESTINAL: Abdomen soft, nontender, nondistended. Active bowel sounds present 4 quadrants. Tolerating minimal diet. Positive flatus. GENITOURINARY: Continues to void, urine output 675 mL in last 8 hours. INTEGUMENTARY: Skin is warm and dry with evidence of good perfusion. Thoracic incision well approximated and covered with dry intact dressing. NEUROLOGIC: Cranial nerves II through XII intact. MUSKULOSKELETAL: Able to move all extremities, strength equal bilaterally, gait normal. PSYCHIATRIC: Alert and oriented to person place and time, appropriate affect, intact judgment and insight. INVASIVE LINES AND TUBES: Right pleural chest tubes present and in place to waterseal, no air leaks present, 130 mL serosanguineous drainage overnight, 230 mL since surgery. - Allied health notes Allied health notes reviewed: nursing - Labs CBC & Chem 7: 10/04/24 06:02 10/04/24 06:02 Labs: Abnormal Lab Results - Last 24 Hours (Table) 10/03/24 10/04/24 10/04/24 Range/Units 11:57 06:02 06:02 WBC 14.81 H (4.50-10.00) 10*3/uL RBC 3.81 L (4.40-5.60) 10*6/uL Hgb 11.4 L (13.0-17.0) g/dL Hct 35.8 L (39.6-50.0) % MCHC 31.8 L (32.0-37.0) g/dL Sodium 134 L (137-145) mmol/L Carbon Dioxide 21 L (22-30) mmol/L BUN 38 H (9-20) mg/dL Creatinine 1.48 H (0.66-1.25) mg/dL Urine Protein 1+ H (Negative) Urine Ketones Trace H (Negative) Urine Blood Large H (Negative) Ur Leukocyte Esterase Large H (Negative) Urine RBC 146 H (0-5) /hpf Urine WBC 81 H (0-5) /hpf Urine WBC Clumps Few H (None) /hpf Urine Mucus Rare H (None) /hpf - Imaging and Cardiology Chest x-ray: report reviewed, image reviewed Assessment and Plan Assessment: Adenocarcinoma right upper lobe of lung, status post robotic assisted thoracoscopic right upper lobectomy with mediastinal lymph node dissection Acute kidney injury History of previous tobacco dependence with cessation in 2009 Moderate COPD, FEV1 55% of predicted, DLCO 50% of predicted Hypertension Persistent atrial fibrillation on Eliquis for anticoagulation status post cardiac ablation GI bleed Plan: We will discontinue his right pleural chest tube. Encourage incentive spirometry use 10 times every hour while awake, bronchodilators per pulmonology. Increase activity as tolerated. Nephrology following kidney function. Will monitor daily labs and chest x-rays. Discharge planning is in place, anticipate discharge home in the next 24 hours. More recommendations to follow based on patient's clinical course. Time with Patient: Greater than 30
--- NOTE | 2024-10-04 14:19 | XR ---
EXAMINATION TYPE: XR chest 2V DATE OF EXAM: 10/04/2024 1:19 PM COMPARISON: None. CLINICAL INDICATION: Male, 63 years old with history of Post chest tube removal, TECHNIQUE: XR chest 2V view(s) obtained. FINDINGS: The heart size is mildly prominent. The pulmonary vasculature is normal. Mild left lower lobe infiltrate is at the left base. Mild diffuse increased lung markings at the righ t lung. Very faint small pneumothorax is present at the right apex. Subcutaneous emphysema is present on the right. Pneumothorax is identified IMPRESSION: 1. Diminished small right apical pneumothorax post chest tube removal. #2 subcutaneous emphysema righ t chest [facility], , 10/04/2024 2:17 PM
--- NOTE | 2024-10-04 14:20 | P.PN ---
Subjective Patient is seen for follow-up for acute kidney injury. Renal function has improved with IV hydration and discontinuation of NSAIDs and BIGG inhibitors. Serum creatinine decreased to 1.48 mg/dL today. Chest tube being taken out No significant complaints Patient has been voiding. Ultrasound shows questionable bilateral mild hydronephrosis. Objective - Vital Signs Vital signs: Vital Signs Temp 97.7 F 10/04/24 08:00 Pulse 95 10/04/24 12:00 Resp 18 10/04/24 12:00 BP 133/80 10/04/24 12:00 Pulse Ox 96 10/04/24 12:00 FiO2 Intake & Output 10/03/24 10/04/24 10/04/24 18:59 06:59 18:59 Intake Total 2340 240 Output Total 1395 1745 630 Balance 945 -1745 -390 Weight 83.8 kg Intake: Oral 2340 240 Output: Chest Tube Drainage 170 170 30 Right 170 170 30 Urine 1225 1575 600 Other: Voiding Method Urinal Urinal Urinal # Voids 1 1 - Exam Patient is awake, comfortable, no acute distress Alert oriented x 3 Examination of the heart S1 and S2 Examination of the lungs decreased breath sounds at the bases Examination lower extremity shows no significant edema [employer] exam grossly intact - Labs CBC & Chem 7: 10/04/24 06:02 10/04/24 06:02 Labs: Abnormal Lab Results - Last 24 Hours (Table) 10/04/24 10/04/24 Range/Units 06:02 06:02 WBC 14.81 H (4.50-10.00) 10*3/uL RBC 3.81 L (4.40-5.60) 10*6/uL Hgb 11.4 L (13.0-17.0) g/dL Hct 35.8 L (39.6-50.0) % MCHC 31.8 L (32.0-37.0) g/dL Sodium 134 L (137-145) mmol/L Carbon Dioxide 21 L (22-30) mmol/L BUN 38 H (9-20) mg/dL Creatinine 1.48 H (0.66-1.25) mg/dL Microbiology - Last 24 Hours (Table) 10/03/24 11:57 Urine Culture - Final Urine,Voided Assessment and Plan Assessment: 1. Acute kidney injury, ATN, oliguric secondary to NSAIDs in the setting of use of BIGG inhibitors along with borderline blood pressure yesterday. Now improved. No urine retention. UA is benign. Ultrasound shows questionable bilateral mild hydronephrosis. 2. Status post right upper lobectomy on 10/02/2024 for right lung cancer 3. Hypertension with possible underlying CKD as serum creatinine was 1.5 on 10/01/2024, likely etiology is nephrosclerosis 4. Gastroesophageal reflux disease maintained on Prilosec Plan: Continue off of NSAIDs Repeat postvoid residual Stable for discharge from nephrology standpoint. May resume BIGG inhibitor upon discharge.
--- NOTE | 2024-10-04 14:29 | P.PN ---
Subjective Progress Note Date: 10/04/24 Principal diagnosis: POD #1 robotic assisted thoracoscopic right upper lobectomy with mediastinal lymph node dissection. Patient was seen today on 10/04/2024, patient is feeling better, not in any distress, chest x-ray is reviewed, no evidence of pneumothorax, chest tube is on waterseal, no air leak is noted. Most likely his chest tube will be removed today. Patient is not complaining of some vague pain and discomfort at the site of the chest tube insertion. WBC count is 14.8 hemoglobin 11.4 electrolytes are normal BUN is 38 creatinine 1.48 Objective - Vital Signs Vital signs: Vital Signs Temp 97.7 F 10/04/24 08:00 Pulse 95 10/04/24 12:00 Resp 18 10/04/24 12:00 BP 133/80 10/04/24 12:00 Pulse Ox 96 10/04/24 12:00 FiO2 Intake & Output 10/03/24 10/04/24 10/04/24 18:59 06:59 18:59 Intake Total 2340 240 Output Total 1395 1745 630 Balance 945 -1745 -390 Weight 83.8 kg Intake: Oral 2340 240 Output: Chest Tube Drainage 170 170 30 Right 170 170 30 Urine 1225 1575 600 Other: Voiding Method Urinal Urinal Urinal # Voids 1 1 - Exam GENERAL EXAM: 62-year-old white male in no distress HEAD: Normocephalic and atraumatic EYES: Normal reaction of pupils, equal size. NOSE: Clear with pink turbinates. THROAT: No erythema or exudates. NECK: No masses, no JVD. Trachea midline. CHEST: Right thoracotomy tube attached to suction and atrium with waterseal. LUNGS: Equal air entry with no crackles, wheeze, rhonchi or dullness. On room air. No conversational dyspnea or accessory muscle use.. CVS: S1 and S2 normal with no audible murmur, regular rhythm. No extra heart sounds ABDOMEN: No hepatosplenomegaly, active bowel sounds, no guarding or rigidity. SPINE: No scoliosis or deformity SKIN: No rashes CENTRAL NERVOUS SYSTEM: Alert and oriented x 3 no focal deficit EXTREMITIES: No clubbing edema or cyanosis - Labs CBC & Chem 7: 10/04/24 06:02 10/04/24 06:02 Labs: Abnormal Lab Results - Last 24 Hours (Table) 10/04/24 10/04/24 Range/Units 06:02 06:02 WBC 14.81 H (4.50-10.00) 10*3/uL RBC 3.81 L (4.40-5.60) 10*6/uL Hgb 11.4 L (13.0-17.0) g/dL Hct 35.8 L (39.6-50.0) % MCHC 31.8 L (32.0-37.0) g/dL Sodium 134 L (137-145) mmol/L Carbon Dioxide 21 L (22-30) mmol/L BUN 38 H (9-20) mg/dL Creatinine 1.48 H (0.66-1.25) mg/dL Microbiology - Last 24 Hours (Table) 10/03/24 11:57 Urine Culture - Final Urine,Voided Assessment and Plan Assessment: Impression: Status postoperative day #2 following robotic assisted thorascopic right upper lobectomy with mediastinal lymph node dissection. No perioperative complications reported. Pathology pending. Biopsy-proven right upper lobe adenocarcinoma, pathology of the right upper lobe nodule positive for well-differentiated adenocarcinoma with enteric and mucinous features, favoring metastasis from upper gastrointestinal versus pancreatic- biliary tract primary. GI workup was reportedly unremarkable. Moderate chronic obstructive pulmonary disease, stable Former tobacco dependence Hypertension Chronic atrial fibrillation Chronic kidney disease stage II History of gout Recommendation: Continue present supportive care measures Chest tube may be removed today by thoracic surgery Continue incentive spirometry Continue bronchodilators/inhalers and updrafts for COPD Continue GI DVT prophylaxis Possible discharge in the next 24 hours. Will continue to follow Time with Patient: Less than 30
[2024-10-04] MEDS: TAMSULOSIN 0.4 MG CAP.ER.24H PO SCH (20:15)
[2024-10-04 20:20] VITALS: TEMP 98
[2024-10-05 06:53] LABS: HCT 35.3 % (39.6-50.0); HGB 11.4 g/dL (13.0-17.0); MCH 30.1 pg (27.0-32.0); MCHC 32.3 g/dL (32.0-37.0); MCV 93.1 fL (80.0-97.0); Mean Platelet Volume 11.7 fL (9.5-12.2); Platelet Count 182 10*3/uL (140-440); RBC 3.79 10*6/uL (4.40-5.60); RDW 15.8 % (11.5-14.5); WBC 13.25 10*3/uL (4.50-10.00)
[2024-10-05 07:13] LABS: African American GFR (CKD) 74 (>60 ml/min/1.73 sqM); Anion Gap 9 mmol/L; Blood Urea Nitrogen 36 mg/dL (9-20); Calcium 9.6 mg/dL (8.4-10.2); Carbon Dioxide 20 mmol/L (22-30); Chloride 106 mmol/L (98-107); Glucose 123 mg/dL (74-99); Non-African American GFR(CKD) 64 (>60 ml/min/1.73 sqM); Potassium 4.7 mmol/L (3.5-5.1); Sodium 135 mmol/L (137-145)
--- NOTE | 2024-10-05 08:31 | P.PN ---
Subjective Progress Note Date: 10/05/24 Principal diagnosis: Adenocarcinoma right upper lobe of lung. History of previous tobacco dependence with cessation in 2010, moderate COPD, hypertension, atrial fibrillation on El iquis for anticoagulation status post cardiac ablation, GI bleed POD #3 robotic assisted thoracoscopic right upper lobectomy with mediastinal lymph node dissection Acute kidney injury, ATN, oliguric secondary to NSAIDs in the setting of use of BIGG inhibitors along with borderline blood pressure The patient was seen and examined this morning sitting up in recliner on the cardiac stepdown unit in no acute distress. States pain is mostly controlled on current medication regimen, denies shortness of breath. Currently in controlled atrial fibrillation, hemodynamically stable. Remains on room air with oxygen saturation in the mid 90s, able to achieve 1000 mL on incentive spirometry. Right pleural chest tube present, was supposed to be to waterseal although was placed to suction last night by pulmonary, placed back to waterseal this morning as per Dr. Guzman's orders. No airleak present today. Patient has had difficulty with voiding, bladder scan revealed minimal residual urine. Patient has been given 1 bolus of IV fluids, ordered for second bolus, urinalysis ordered. Chest x-ray, labs reviewed, creatinine elevated, nephrology consulted, did discuss the case with Dr. Stiles. Objective - Vital Signs Vital signs: Vital Signs Temp 98 F 10/04/24 20:00 Pulse 92 10/05/24 03:49 Resp 16 10/05/24 03:49 BP 113/72 10/05/24 03:49 Pulse Ox 92 L 10/05/24 03:49 FiO2 Intake & Output 10/04/24 10/05/24 10/05/24 18:59 06:59 18:59 Intake Total 480 0 Output Total 929 1300 Balance -449 -1300 0 Weight 83.1 kg Intake: Oral 480 0 Output: Chest Tube Drainage 30 Right 30 Urine 600 1300 Post Void Residual 299 Other: Voiding Method Urinal Urinal # Voids 2 - Exam CONSTITUTIONAL: Appears comfortable, cooperative, no acute distress RESPIRATORY: Lungs sounds diminished bilaterally. Respirations even, nonlabored. Currently on room air with oxygen saturation 92%. Able to achieve 1000 mL on incentive spirometry. Strong cough. CARDIOVASCULAR: S1, S2 present. Irregular rate and rhythm, controlled atrial fibrillation on telemetry. Palpable peripheral pulses bilaterally. Bilateral lower extremity edema present. No calf pain or tenderness noted. SCDs present. GASTROINTESTINAL: Abdomen soft, nontender, nondistended. Active bowel sounds present 4 quadrants. Tolerating minimal diet. Positive flatus GENITOURINARY: Continues to void, output 1900 mL in the last 24 hours INTEGUMENTARY: Skin is warm and dry with evidence of good perfusion. Thoracic incision well approximated and covered with dry intact dressing. NEUROLOGIC: Cranial nerves II through XII intact MUSKULOSKELETAL: Able to move all extremities, strength equal bilaterally, gait normal PSYCHIATRIC: Alert and oriented to person place and time, appropriate affect, intact judgment and insight - Allied health notes Allied health notes reviewed: nursing - Labs CBC & Chem 7: 10/05/24 06:14 10/05/24 06:14 Labs: Abnormal Lab Results - Last 24 Hours (Table) 10/05/24 10/05/24 Range/Units 06:14 06:14 WBC 13.25 H (4.50-10.00) 10*3/uL RBC 3.79 L (4.40-5.60) 10*6/uL Hgb 11.4 L (13.0-17.0) g/dL Hct 35.3 L (39.6-50.0) % Sodium 135 L (137-145) mmol/L Carbon Dioxide 20 L (22-30) mmol/L BUN 36 H (9-20) mg/dL Glucose 123 H (74-99) mg/dL Microbiology - Last 24 Hours (Table) 10/03/24 11:57 Urine Culture - Final Urine,Voided - Imaging and Cardiology Chest x-ray: image reviewed Assessment and Plan Assessment: Adenocarcinoma right upper lobe of lung, status post robotic assisted thoracoscopic right upper lobectomy with mediastinal lymph node dissection Acute kidney injury, ATN, oliguric secondary to NSAIDs in the setting of use of BIGG inhibitors along with borderline blood pressure History of previous tobacco dependence with cessation in 2009 Moderate COPD, FEV1 55% of predicted, DLCO 50% of predicted Hypertension Persistent atrial fibrillation on Eliquis for anticoagulation status post cardiac ablation GI bleed Plan: Encourage incentive spirometry use 10 times every hour while awake, br onchodilators per pulmonology Increase activity as tolerated Anticipate discharge to home this afternoon More recommendations to follow
--- NOTE | 2024-10-05 08:32 | XR ---
EXAMINATION TYPE: XR chest 2V DATE OF EXAM: 10/05/2024 6:26 AM COMPARISON: 10/04/2024 CLINICAL INDICATION: Male, 63 years old with history of post op right upper lobectomy, TECHNIQUE: XR chest 2V view(s) obtained. FINDINGS: The heart size is mildly prominent. The pulmonary vasculature is normal. There is increased opacity right chest. Bibasilar infiltrates are present. Minimal apical pneumothora x more difficult to identify today IMPRESSION: 1. Right midlung and bibasilar infiltrates. 2. Some minimal apical pneumothorax may remain on right. [facility], , 10/05/2024 8:30 AM
[2024-10-05 09:52] VITALS: BP 113/67; RESP 18
--- NOTE | 2024-10-05 11:07 | P.DS ---
Providers Date of admission: 10/02/24 05:50 Expected date of discharge: 10/05/24 Attending physician: Abner Guzman Consults: 10/02/24 15:17 Consult Physician Routine Consulting Provider: Darius Roberts Consult Reason/Comments: Pulmonary management Do you want consulting provider notified?: Yes 10/03/24 10:33 Consult Physician Routine Consulting Provider: Florencia Stiles Consult Reason/Comments: KATHY after lobectomy Do you want consulting provider notified?: Yes Primary care physician: Roseann Torre MD Hospital Course: FINAL DIAGNOSIS: Adenocarcinoma right upper lobe of lung Acute kidney injury, ATN, oliguric secondary to NSAIDs in the setting of use of BIGG inhibitors along with borderline blood pressure History of previous tobacco dependence with cessation in 2009 Moderate COPD, FEV1 55% of predicted, DLCO 50% of predicted Hypertension Persistent atrial fibrillation on Eliquis for anticoagulation status post cardiac ablation GI bleed PRINCIPAL PROCEDURE: Robotic assisted thoracoscopic right upper lobectomy with mediastinal lymph node dissection HISTORY OF PRESENT ILLNESS: This is a 63-year-old male who follows outpatient with Dr. Torre for primary care and Dr. Cruz for pulmonology. This gentleman has multiple comorbid conditions including COPD with history of multiple pulmonary nodules. Most recent PET scan in January 2024 demonstrated marked change in one of the pulmonary nodules, previous GGO in the posterior segment of the right upper lobe could be, solid mass just under 2 cm in diameter and had significant uptake on PET which was new. There was mild mediastinal adenopathy but no PET uptake in the mediastinal nodules. There was a stable GGO in the left upper lobe, small GGO in the right upper lobe which was also stable and a necrotic hilar mass in the left upper lobe which was chronic and unchanged for many years. He underwent IR bronchoscopy in early March and biopsies did demonstrate well-differentiated adenocarcinoma with enteric and mucinous features which favored metastasis from an upper GI or pancreatic or biliary tract primary. Subsequently he underwent further workup including endoscopy, CT, MRI of the abdomen, all of which were negative. The patient was referred to Dr. Guzman from cardiothoracic surgery. He was recommended to undergo surgical resection. The usual perioperative course was discussed in detail with the patient, all risks and benefits were explained, all questions were answered. The patient wished to think about it, and get an opinion from radiation oncology. In addition he was recommended to undergo cardiac clearance. He did eventually consent to proceed with lobectomy and was scheduled once cardiac clearance was obtained. HOSPITAL COURSE: The patient was brought to the hospital on 10/02/24, taken to the preoperative area, prepared in the usual fashion, and subsequently taken to the operating room where Dr. Guzman performed robotic assisted thoracoscopic right upper lobectomy with mediastinal lymph node dissection. Upon completion of surgery the patient was extubated and taken to the recovery room with subsequent admission to 3 S. cardiac stepdown unit where he was recovered and monitored hemodynamically. He did develop acute kidney injury secondary to NSAID use and BIGG inhibitor, although the patient stated this had happened in the past with previous surgery, and he did continue to recover. His oxygen was titrated down, he was tolerating oral diet, his pain was controlled, and his chest tube was discontinued on POD #2. Follow-up chest x-ray was satisfactory and he was ready to be discharged to home on postoperative day #3. He received written and verbal instruction regarding his medications, activity restrictions, signs and symptoms requiring physician notification, and follow-up appointments. Patient Condition at Discharge: Stable Plan - Discharge Summary Discharge Rx Participant: Yes New Discharge Prescriptions: New Tamsulosin [Flomax] 0.4 mg PO PC-SUPPER #30 cap traMADol HCl [Ultram] 50 mg PO QID PRN #12 tab PRN Reason: Severe Pain (Scale 7 To 10) Albuterol Sulfate [Albuterol Sulfate Hfa] 2 puff PO Q6H PRN 30 Days #8.5 gm PRN Reason: Shortness Of Breath Acetaminophen Tab [Tylenol] 650 mg PO Q4HR PRN tab PRN Reason: Mild To Moderate Pain (1 - 6) Budesonide-Formot 160-4.5 Mcg [Symbicort 160-4.5 Mcg Inhaler] 2 puff INHALATION BID 30 Days #10.2 gm Continue Probenecid [Benemid] 250 mg PO BID Potassium Chloride ER [K-Dur 10] 10 meq PO Q2D Omeprazole [PriLOSEC] 20 mg PO AC-BRKFST Metoprolol Tartrate [Lopressor] 100 mg PO BID Gabapentin [Neurontin] 300 mg PO BID Furosemide [Lasix] 20 mg PO Q2D lisinopriL [Prinivil] 20 mg PO HS allopurinoL [Zyloprim] 300 mg PO QAM Apixaban [Eliquis] 5 mg PO BID Sildenafil Citrate [Viagra] 50 mg PO DIRECTED PRN PRN Reason: E.D. Discharge Medication List Apixaban [Eliquis] 5 mg PO BID 03/26/24 [History] Furosemide [Lasix] 20 mg PO Q2D 03/26/24 [History] Gabapentin [Neurontin] 300 mg PO BID 03/26/24 [History] Metoprolol Tartrate [Lopressor] 100 mg PO BID 03/26/24 [History] Omeprazole [PriLOSEC] 20 mg PO AC-BRKFST 03/26/24 [History] Potassium Chloride ER [K-Dur 10] 10 meq PO Q2D 03/26/24 [History] Probenecid [Benemid] 250 mg PO BID 03/26/24 [History] allopurinoL [Zyloprim] 300 mg PO QAM 03/26/24 [History] lisinopriL [Prinivil] 20 mg PO HS 03/26/24 [History] Sildenafil Citrate [Viagra] 50 mg PO DIRECTED PRN 09/28/24 [History] Acetaminophen Tab [Tylenol] 650 mg PO Q4HR PRN tab 10/05/24 [Rx] Albuterol Sulfate [Albuterol Sulfate Hfa] 2 puff PO Q6H PRN 30 Days #8.5 gm 0 10/05/24 [Rx] Budesonide-Formot 160-4.5 Mcg [Symbicort 160-4.5 Mcg Inhaler] 2 puff INHALATION BID 30 Days #10.2 gm 10/05/24 [Rx] Tamsulosin [Flomax] 0.4 mg PO PC-SUPPER #30 cap 10/05/24 [Rx] traMADol HCl [Ultram] 50 mg PO QID PRN #12 tab 10/05/24 [Rx] Follow up Appointment(s)/Referral(s): Rodolfo Cruz MD [STAFF PHYSICIAN] - 10/29/24 9:30 am Abner Guzman MD [STAFF PHYSICIAN] - 10/22/24 10:45 am Roseann Torre MD [Primary Care Provider] - As Needed Activity/Diet/Wound Care/Special Instructions: DISCHARGE INSTRUCTIONS: 1. No driving for 2 weeks, or until physician gives their ok. 2. No lifting, pushing, or pulling more than 10 pounds for 2 weeks. The physician will advise of any restriction changes. 3. Continue pain control per as needed orders. Alternate acetaminophen (Tylenol) and ibuprofen (Motrin/Advil) for pain. 4. Continue with incentive spirometry and splinting until otherwise directed by the physician. 5. Leave chest tube dressing for 48 hours. After that, remove all dressings and shower daily. 6. Routine incision care. No powders, lotions, ointments on incisions. 7. Please call surgeon/AGRICULTURAL SERVICE WORKER for temp greater than 101 F or purulent drainage from incisions. 8. Smoking cessation counseling and program information provided. 9. Have basic metabolic profile lab drawn on October 03, 2024 with results faxed to Dr. Stiles's office at [phone] and also have a basic metabolic profile drawn on October 08, 2024 with results faxed to [phone]. 10. Casas catheter care as instructed follow-up with Dr. Campbell's office as instructed. Quitting smoking is the most important step you can take to improve your health. For additional information and assistance to quit smoking, please call the [place] tobacco quit line (7-896-PPOJ-NOW/ ) or online: https://[email or web address].gov/[email or web address]-ph-qzavfph/chronicdiseases/tobacco/how-to-qu it-tobacco Discharge Disposition: HOME SELF-CARE
[2024-10-05 12:05] VITALS: PULSE 90
--- NOTE | 2024-10-05 12:39 | P.PN ---
Subjective Progress Note Date: 10/05/24 Principal diagnosis: POD #2 robotic assisted thoracoscopic right upper lobectomy with mediastinal lymph node dissection. Patient was seen today on 10/04/2024, patient is feeling better, not in any distress, chest x-ray is reviewed, no evidence of pneumothorax, chest tube is on waterseal, no air leak is noted. Most likely his chest tube will be removed today. Patient is not complaining of some vague pain and discomfort at the site of the chest tube insertion. WBC count is 14.8 hemoglobin 11.4 electrolytes are normal BUN is 38 creatinine 1.48 Patient was seen today on 10/05/2024, patient is doing well, hardly any pulmonary symptoms, no cough no wheezing or shortness of breath, patient has no evidence of pneumothorax on chest x-ray, his chest tube has been removed, and the plan is to discharge the patient home today, patient will use his incentive spirometry at home and he will see me on outpatient basis in 1 to 2 weeks. Objective - Vital Signs Vital signs: Vital Signs Temp 98 F 10/05/24 08:00 Pulse 90 10/05/24 12:03 Resp 18 10/05/24 08:00 BP 113/67 10/05/24 08:00 Pulse Ox 96 10/05/24 08:00 FiO2 Intake & Output 10/04/24 10/05/24 10/05/24 18:59 06:59 18:59 Intake Total 480 0 Output Total 929 1300 275 Balance -449 -1300 -275 Weight 83.1 kg Intake: Oral 480 0 Output: Chest Tube Drainage 30 Right 30 Urine 600 1300 275 Post Void Residual 299 Other: Voiding Method Urinal Urinal Urinal # Voids 2 - Exam GENERAL EXAM: 62-year-old white male in no distress HEAD: Normocephalic and atraumatic EYES: Normal reaction of pupils, equal size. NOSE: Clear with pink turbinates. THROAT: No erythema or exudates. NECK: No masses, no JVD. Trachea midline. CHEST: Symmetrical expansion LUNGS: Equal air entry with no crackles, wheeze, rhonchi or dullness. On room a ir. CVS: S1 and S2 normal with no audible murmur, regular rhythm. No extra heart sounds ABDOMEN: No hepatosplenomegaly, active bowel sounds, no guarding or rigidity. SPINE: No scoliosis or deformity SKIN: No rashes CENTRAL NERVOUS SYSTEM: Alert and oriented x 3 no focal deficit EXTREMITIES: No clubbing edema or cyanosis - Labs CBC & Chem 7: 10/05/24 06:14 10/05/24 06:14 Labs: Abnormal Lab Results - Last 24 Hours (Table) 10/05/24 10/05/24 Range/Units 06:14 06:14 WBC 13.25 H (4.50-10.00) 10*3/uL RBC 3.79 L (4.40-5.60) 10*6/uL Hgb 11.4 L (13.0-17.0) g/dL Hct 35.3 L (39.6-50.0) % Sodium 135 L (137-145) mmol/L Carbon Dioxide 20 L (22-30) mmol/L BUN 36 H (9-20) mg/dL Glucose 123 H (74-99) mg/dL Microbiology - Last 24 Hours (Table) 10/03/24 11:57 Urine Culture - Final Urine,Voided Assessment and Plan Assessment: Impression: Status postoperative day # 3 following robotic assisted thorascopic right upper lobectomy with mediastinal lymph node dissection. No perioperative complicatio ns reported. Pathology pending. Biopsy-proven right upper lobe adenocarcinoma, pathology of the right upper lobe nodule positive for well-differentiated adenocarcinoma with enteric and mucinous features, favoring metastasis from upper gastrointestinal versus pancreatic- biliary tract primary. GI workup was reportedly unremarkable. Moderate chronic obstructive pulmonary disease, stable Former tobacco dependence Hypertension Chronic atrial fibrillation Chronic kidney disease stage II History of gout Recommendation: Continue present supportive care measures Agree with discharge planning and follow-up on outpatient basis Continue incentive spirometry, on outpatient basis. Time with Patient: Less than 30
--- NOTE | 2024-10-05 21:41 | P.PN ---
Subjective Patient is seen for follow-up for acute kidney injury. Renal function has improved with IV hydration and discontinuation of NSAIDs and BIGG inhibitors. Serum creatinine decreased to 1.2 mg/dL today. t No significant complaints Patient has been voiding. Ultrasound shows questionable bilateral mild hydronephrosis. Postvoid residual was 299 and patient is started on Flomax. Objective - Vital Signs Vital signs: Vital Signs Temp 98 F 10/05/24 08:00 Pulse 90 10/05/24 12:03 Resp 18 10/05/24 08:00 BP 113/67 10/05/24 08:00 Pulse Ox 96 10/05/24 08:00 FiO2 Intake & Output 10/05/24 10/05/24 10/06/24 06:59 18:59 06:59 Intake Total 0 Output Total 1300 275 Balance -1300 -275 Weight 83.1 kg Intake: Oral 0 Output: Urine 1300 275 Other: Voiding Method Urinal Urinal # Voids 2 - Exam Patient is awake, comfortable, no acute distress Alert oriented x 3 5.Examination lower extremity shows no significant edema DEPORTATION EXAMINER exam grossly intact - Labs CBC & Chem 7: 10/05/24 06:14 10/05/24 06:14 Labs: Abnormal Lab Results - Last 24 Hours (Table) 10/05/24 10/05/24 Range/Units 06:14 06:14 WBC 13.25 H (4.50-10.00) 10*3/uL RBC 3.79 L (4.40-5.60) 10*6/uL Hgb 11.4 L (13.0-17.0) g/dL Hct 35.3 L (39.6-50.0) % Sodium 135 L (137-145) mmol/L Carbon Dioxide 20 L (22-30) mmol/L BUN 36 H (9-20) mg/dL Glucose 123 H (74-99) mg/dL Assessment and Plan Assessment: 1. Acute kidney injury, ATN, oliguric secondary to NSAIDs in the setting of use of BIGG inhibitors along with borderline blood pressure yesterday. Now improved. No urine retention. UA is benign. Ultrasound shows questionable bilateral mild hydronephrosis. Postvoid residual was 299 and patient is started on Flomax. Serum creatinine decreased to 1.2 today 2. Status post right upper lobectomy on 10/02/2024 for right lung cancer 3. Hypertension with possible underlying CKD as serum creatinine was 1.5 on 10/01/2024, likely etiology is nephrosclerosis 4. Gastroesophageal reflux disease maintained on Prilosec Plan: Continue off of NSAIDs Continue Flomax Stable for discharge from nephrology standpoint. May resume BIGG inhibitor upon discharge.
== END 2024-10-05 12:25 | disposition home or self-care (01) | DRG 163 ==
LOC: 2ORMAIN 05:50 → 3SCARD 14:55
PROVIDERS: ADMIT Thoracic Surgery (Cardiothoracic Vascular Surgery); ATTEND Thoracic Surgery (Cardiothoracic Vascular Surgery)
PROC: 07B74ZX Excision of Thorax Lymphatic, Percutaneous Endoscopic Approach, Diagnostic (ICD-10-PCS; 2024-10-02)
PROC: 8E0W4CZ Robotic Assisted Procedure of Trunk Region, Percutaneous Endoscopic Approach (ICD-10-PCS; 2024-10-02)
PROC: 3E0T3BZ Introduction of Anesthetic Agent into Peripheral Nerves and Plexi, Percutaneous Approach (ICD-10-PCS; 2024-10-02)
PROC: 0BTC4ZZ Resection of Right Upper Lung Lobe, Percutaneous Endoscopic Approach (ICD-10-PCS; principal; 2024-10-02 07:30)
DX: C78.01 Secondary malignant neoplasm of right lung (principal); N17.0 Acute kidney failure with tubular necrosis; K92.2 Gastrointestinal hemorrhage, unspecified; I48.19 Other persistent atrial fibrillation; C26.9 Malignant neoplasm of ill-defined sites within the digestive system; J44.9 Chronic obstructive pulmonary disease, unspecified; I12.9 Hypertensive chronic kidney disease with stage 1 through stage 4 chronic kidney disease, or unspecified chronic kidney disease; K21.9 Gastro-esophageal reflux disease without esophagitis; T39.395A Adverse effect of other nonsteroidal anti-inflammatory drugs [NSAID], initial encounter; N18.2 Chronic kidney disease, stage 2 (mild); Z87.891 Personal history of nicotine dependence; Z79.01 Long term (current) use of anticoagulants; Z79.899 Other long term (current) drug therapy; Z87.39 Personal history of other diseases of the musculoskeletal system and connective tissue; Z86.0100 Personal history of colon polyps, unspecified
CPT/HCPCS: 64466; 71045; 71046; 76770; 80048; 81001; 85025; 85027; 87086; 94640; 94760